=== PATIENT | female | born 1935 | race Two or more races ===

== ENCOUNTER 2019-01-26 21:13 | Emergency (ER) | payer MEDICARE, MEDICAID ==
[2019-01-26] MEDS ORDERED: ACETAMINOPHEN 325 MG TABLET PO ONE (23:35)
--- NOTE | 2019-01-26 23:37 | ER Document Report ---
ED Medical Screen (RME) - General Chief Complaint: Nose Bleed Stated Complaint: NOSE BLEED Time Seen by Provider: 01/26/19 23:17 Primary Care Provider: JAVIER MARTINEZ MD [Primary Care Provider] - Follow up as needed - [facility] Notes: 01/26/19 23:35 Patient is an 83-year-old female with history of hypertension, not on any blood thinning medications, who presents complaining of having a heavy nosebleed for a couple hours this evening that stopped about an hour ago. Patient states that now she has a "wicked headache." This is not the worst headache of her life and did not start as a thunderclap. Patient is requesting Tylenol. No fever, chest pain, shortness of breath. I have treated and performed a rapid initial assessment of this patient. A comprehensive ED assessment and evaluation of the patient, analysis of test results and completion of medical decision making process will be conducted by additional ED providers. PHYSICAL EXAMINATION: GENERAL: Well-appearing, well-nourished and in no acute distress. A&Ox4. Answers questions appropriately. Neuro: Cranial nerves grossly intact. NIH 0. GCS 15. Nose: There is scant semi-wet blood noted to the distal Rt nare. There is minimal amount of scant blood in the posterior oropharynx. No other active bleeding. - Related Data Allergies/Adverse Reactions: No Known Allergies Allergy (Verified 04/13/13 08:06) Home Medications: Losartan Past Medical History - Social History Frequency of alcohol use: None Drug Abuse: None - Past Medical History Cardiac Medical History: Reports: Hx Hypertension Past Surgical History: Reports: Hx Section - Immunizations Hx Diphtheria, Pertussis, Tetanus Vaccination: No - unk Physical Exam - Vital signs Vitals: Temp Pulse Resp BP Pulse Ox 97.6 F 66 16 148/61 H 100 01/26/19 21:41 01/26/19 21:41 01/26/19 21:41 01/26/19 21:41 01/26/19 21:41 Course - Vital Signs Vital signs: Temp Pulse Resp BP Pulse Ox 97.6 F 66 16 148/61 H 100 01/26/19 21:41 01/26/19 21:41 01/26/19 21:41 01/26/19 21:41 01/26/19 21:41 Doctor's Discharge - Discharge Referrals: JAVIER MARTINEZ MD [Primary Care Provider] - Follow up as needed
[2019-01-27 00:01] LABS: ABSOLUTE EOSINOPHILS # (AUTO) 0.1 10^3/uL (0.0-0.6); ABSOLUTE LYMPHOCYTES (AUTO) 1.5 10^3/uL (0.5-4.7); ABSOLUTE MONOCYTES (AUTO) 0.4 10^3/uL (0.1-1.4); ABSOLUTE NEUT (AUTO) 4.6 10^3/uL (1.7-8.2); BASOPHILS % (AUTO) 0.4 % (0-2); HEMOGLOBIN 10.9 g/dL (12.0-15.5); LYMPHOCYTES % (AUTO) 22.4 % (13-45); MEAN CORPUSCULAR HEMOGLOBIN 26.6 pg (27.0-33.4); MEAN CORPUSCULAR HGB CONC 32.9 g/dL (32.0-36.0); MEAN CORPUSCULAR VOLUME 81 fl (80-97); PLATELET COUNT 232 10^3/uL (150-450); RED BLOOD COUNT 4.09 10^6/uL (3.72-5.28); RED CELL DISTRIBUTION WIDTH 13.6 % (11.5-14.0); SEGMENTED NEUTROPHILS % (AUTO) 70.2 % (42-78); TOTAL CELLS COUNTED % (AUTO) 100 %; WHITE BLOOD COUNT 6.5 10^3/uL (4.0-10.5)
--- NOTE | 2019-01-27 00:49 | ER Document Report ---
ED General - General Chief Complaint: Nose Bleed Stated Complaint: NOSE BLEED Time Seen by Provider: 01/26/19 23:17 Primary Care Provider: JAVIER MARTINEZ MD [Primary Care Provider] - Follow up as needed - HPI Notes: Patient is a very pleasant 83-year-old female who presents the emergency department for evaluation of a nosebleed. She states she was at home when she had sudden onset of bilateral nostril bleeding. She tried for about an hour to get it to stop when she called her daughter. After another hour they could not get it to stop so she was brought here to the emergency department for further evaluation. She had a total of approximately 4 hours of nosebleeding. She denies any trauma to the area. She is not on any blood thinners. She denies any chest pain or dizziness associated with it. Patient also states she has a mild headache. It is not the worst headache of her life. It is in bilateral temples and frontal area. Nothing seems to make it better or worse. - Related Data Allergies/Adverse Reactions: No Known Allergies Allergy (Verified 04/13/13 08:06) Home Medications: Losartan unknown dose daily, Claritin 10 mg daily Past Medical History - General Information source: Patient - Social History Smoking Status: Never Smoker Frequency of alcohol use: None Drug Abuse: None Family History: Reviewed & Not Pertinent Patient has suicidal ideation: No Patient has homicidal ideation: No - Past Medical History Cardiac Medical History: Reports: Hx Hypertension Past Surgical History: Reports: Hx Section - Immunizations Hx Diphtheria, Pertussis, Tetanus Vaccination: No - unk Review of Systems - Review of Systems Constitutional: No symptoms reported EENT: See HPI Cardiovascular: No symptoms reported Respiratory: No symptoms reported Gastrointestinal: No symptoms reported Genitourinary: No symptoms reported Musculoskeletal: No symptoms reported Skin: No symptoms reported Neurological/Psychological: No symptoms reported Physical Exam - Vital signs Vitals: Temp Pulse Resp BP Pulse Ox 97.6 F 66 16 148/61 H 100 01/26/19 21:41 01/26/19 21:41 01/26/19 21:41 01/26/19 21:41 01/26/19 21:41 - Notes Notes: Vital signs reviewed, please refer to chart. Head is normocephalic, atraumatic. Pupils equal round, reactive to light. No conjunctival pallor. There is a scant amount of blood in anterior nares bilaterally, but no active bleeding. No clear bleeding source identified. Neck is supple without meningismus. Heart is regular rate and rhythm. Lungs are clear to auscultation bilaterally. Abdomen is soft, nontender, normoactive bowel sounds throughout. Extremities without cyanosis, clubbing. Posterior calves are nontender. Peripheral pulses are equ al. Skin is warm and dry. Patient is awake, alert, oriented x3. Cranial nerves II - XII are grossly intact without focal neurological deficits. Strength is plus 5 out of 5 bilateral upper and lower extremities. Sensation is intact. Reflexes symmetrical. Intact [id number]-[id number], rapid alternating movements, ayih-[id number]-xtix. Course - Re-evaluation Re-evalutation: 01/27/19 00:47 Patient presents emergency department for evaluation. She was given Tylenol for her headache. By the time she came back into the emergency department her nosebleed had stopped. She was warned to avoid any manipulation of her nose, not to blow her nose. She can use saline nasal drops after 24 hours. Her hemoglobin was 10.9. This is certainly not a remarkable hemoglobin for an 83-year-old female. I do not have any old hemoglobins for comparison. She is encouraged to follow-up with her primary care doctor Tuesday, return to the ED with worsening or new concerning symptoms. - Vital Signs Vital signs: Temp Pulse Resp BP Pulse Ox 97.6 F 66 16 148/61 H 100 01/26/19 21:41 01/26/19 21:41 01/26/19 21:41 01/26/19 21:41 01/26/19 21:41 - Laboratory Result Diagrams: 01/26/19 23:50 Laboratory results interpreted by me: 01/26/19 23:50 Hgb 10.9 L Hct 33.0 L MCH 26.6 L Discharge - Discharge Clinical Impression: Nosebleed, Headache Condition: Stable Disposition: HOME, SELF-CARE Instructions: Nosebleed Instructions (OM) Additional Instructions: On evaluation today, your hemoglobin was 10.9. Rest. Do not blow your nose for at least 24 hours. After 24 hours you can add saline nasal drops to keep the nasal mucosa moisturized. Follow-up with your primary care provider on Tuesday. If you develop nosebleed again that will not stop after 1 hour of constant pressure, or any other new or concerning symptoms, please return immediately to the emergency department for evaluation. Referrals: JAVIER MARTINEZ MD [Primary Care Provider] - Follow up as needed
[2019-01-27 01:03] VITALS: BP 136/54
== END 2019-01-27 01:12 | disposition home or self-care (01) ==
LOC: ER 21:13
DX: R04.0 Epistaxis (principal); R51 Headache; I10 Essential (primary) hypertension; Z79.899 Other long term (current) drug therapy
CPT/HCPCS: 36415; 85025; A9270; 99283

== ENCOUNTER 2019-08-24 14:37 | Emergency (ER) | payer MEDICARE, MEDICAID ==
[2019-08-24] MEDS ORDERED: NORMAL SALINE 1000 ML 1,000 ML IV PRN (16:29)
[2019-08-24] MEDS ORDERED: ONDANSETRON HCL INJ/PF 4 MG/2 ML SDV IV ONE (16:30)
--- NOTE | 2019-08-24 16:41 | ER Document Report ---
ED GI/ - General Chief Complaint: Headache Stated Complaint: ABDOMINAL PAIN,HEADACHE Time Seen by Provider: 08/24/19 16:24 Primary Care Provider: JAVIER MARTINEZ MD [Primary Care Provider] - Follow up as needed Information source: Patient TRAVEL OUTSIDE OF THE [place] IN LAST 30 DAYS: Yes - HPI Patient complains to provider of: Other - This is an 84-year-old female presented to the emergency room today stating that her neighbor upstairs was utilizing some type of chemicals yesterday that had fumes coming into her house she has metallic taste in her mouth and scant nausea she is been able to eat and drink today without any discomfort no problems holding it down she did have a bowel movement she denies chest pain denies shortness of breath. - Related Data Allergies/Adverse Reactions: No Known Allergies Allergy (Verified 04/13/13 08:06) Past Medical History - General Information source: Patient - Social History Smoking Status: Never Smoker Chew tobacco use (# tins/day): No Smoking Education Provided: No Frequency of alcohol use: None Drug Abuse: None Lives with: Alone Family History: Reviewed & Not Pertinent - Past Medical History Cardiac Medical History: Reports: Hx Hypertension Past Surgical History: Reports: Hx Section - Immunizations Hx Diphtheria, Pertussis, Tetanus Vaccination: No - unk Review of Systems - Review of Systems Constitutional: No symptoms reported EENT: No symptoms reported Cardiovascular: No symptoms reported Respiratory: No symptoms reported Gastrointestinal: No symptoms reported Genitourinary: No symptoms reported Female Genitourinary: No symptoms reported Musculoskeletal: No symptoms reported Skin: No symptoms reported Hematologic/Lymphatic: No symptoms reported Neurological/Psychological: No symptoms reported Physical Exam - Vital signs Vitals: Temp 97.5 F 08/24/19 16:00 Interpretation: Normal - General General appearance: Appears well, Alert - HEENT Head: Normocephalic, Atraumatic Eyes: Normal Pupils: PERRL - Respiratory Respiratory status: No respiratory distress Chest status: Nontender Breath sounds: Normal Chest palpation: Normal - Cardiovascular Rhythm: Regular Heart sounds: Normal auscultation Murmur: No - Abdominal Inspection: Normal Distension: No distension Bowel sounds: Normal Tenderness: Nontender Organomegaly: No organomegaly - Back Back: Normal, Nontender - Extremities General upper extremity: Normal inspection, Nontender, Normal color, Normal ROM, Normal temperature General lower extremity: Normal inspection, Nontender, Normal color, Normal ROM, Normal temperature, Normal weight bearing. No: Sage's sign - Neurological Neuro grossly intact: Yes Cognition: Normal Orientation: AAOx4 [place] Coma Scale Eye Opening: Spontaneous [place] Coma Scale Verbal: Oriented [place] Coma Scale Motor: Obeys Commands [place] Coma Scale Total: 15 Speech: Normal Motor strength normal: LUE, RUE, LLE, RLE Sensory: Normal - Psychological Associated symptoms: Normal affect, Normal mood - Skin Skin Temperature: Warm Skin Moisture: Dry Skin Color: Normal Course - Re-evaluation Re-evalutation: 08/24/19 20:42 No chest pain no shortness of breath no exertional chest pain no exertional shortness of breath no diaphoresis no nausea no vomiting patient feeling much better here in the department. - Vital Signs Vital signs: Temp Pulse Resp BP Pulse Ox 97.5 F 08/24/19 16:00 - Laboratory Result Diagrams: 08/24/19 19:25 08/24/19 19:25 Laboratory results interpreted by me: 08/24/19 08/24/19 19:25 19:25 Hgb 10.7 L Hct 33.4 L MCH 26.3 L AST 38 H Lipase 20.2 L Labs- All tests 24 hr 08/24/19 08/24/19 08/24/19 19:00 19:25 19:25 WBC 9.0 RBC 4.06 Hgb 10.7 L Hct 33.4 L MCV 82 MCH 26.3 L MCHC 32.0 RDW 13.9 Plt Count 222 Lymph % (Auto) Not Reportable [place] % (Auto) Not Reportable Eos % (Auto) Not Reportable Baso % (Auto) Not Reportable Absolute Neuts (auto) Not Reportable Absolute Lymphs (auto) Not Reportable Absolute Monos (auto) Not Reportable Absolute Eos (auto) Not Reportable Absolute Basos (auto) Not Reportable Total Counted 100 Seg Neutrophils % Not Reportable Seg Neuts % (Manual) 52 Lymphocytes % (Manual) 41 Monocytes % (Manual) 7 Eosinophils % (Manual) 0 Basophils % (Manual) 0 Abs Neuts (Manual) 4.7 Abs Lymphs (Manual) 3.7 Abs Monocytes (Manual) 0.6 Absolute Eos (Manual) 0.0 Abs Basophils (Manual) 0.0 Clumped Platelets PRESENT Platelet Comment ADEQUATE RBC Morph Comment NORMO-CYTIC/CHROMIC Sodium 138.6 Potassium 3.9 Chloride 104 Carbon Dioxide 27 Anion Gap 8 BUN 14 Creatinine 0.69 Est GFR ( Amer) > 60 Est GFR (MDRD) Non-Af > 60 Glucose 94 Calcium 9.7 Total Bilirubin 0.5 Direct Bilirubin 0.0 Neonat Total Bilirubin Not Reportable Neonat Direct Bilirubin Not Reportable Neonat Indirect Bili Not Reportable AST 38 H ALT 27 Alkaline Phosphatase 90 Total Protein 8.1 Albumin 4.5 Lipase 20.2 L Urine Color STRAW Urine Appearance CLEAR Urine pH 7.0 Ur Specific [place] 1.005 Urine Protein NEGATIVE Urine Glucose (UA) NEGATIVE Urine Ketones NEGATIVE Urine Blood NEGATIVE Urine Nitrite NEGATIVE Urine Bilirubin NEGATIVE Urine Urobilinogen NEGATIVE Ur Leukocyte Esterase NEGATIVE Urine WBC (Auto) 1 Urine RBC (Auto) 0 Squamous Epi Cells Auto 1 Urine Mucus (Auto) RARE Urine Ascorbic Acid NEGATIVE - Diagnostic Test Radiology results interpreted by me: 08/24/19 20:42 Acute Abdomen Series 08/24/19 16:29 IMPRESSION: No acute findings in the abdomen. Cardiomegaly without pulmonary edema. Osseous findings as described. Discharge - Discharge Clinical Impression: Viral syndrome Disposition: HOME, SELF-CARE Instructions: [facility]ae ([facility]) Additional Instructions: Increase fluid intake. Rest. Follow-up with PMD in 2 to 3 days. Return to the emergency room for any change or worsening condition. Referrals: JAVIER MARTINEZ MD [Primary Care Provider] - Follow up as needed
--- NOTE | 2019-08-24 17:54 | RADIOLOGY REPORT (SQ) ---
EXAM DESCRIPTION: ACUTE ABDOMEN SERIES IMAGES COMPLETED DATE/TIME: 08/24/2019 5:42 pm REASON FOR STUDY: cough cramping COMPARISON: None. NUMBER OF VIEWS: Three views. TECHNIQUE: Frontal chest, supine abdomen and upright/decubitus abdomen radiographic images acquired. LIMITATIONS: None. FINDINGS: CHEST: Cardiomegaly without pulmonary edema. FREE AIR: None. No abnormal gas collections. BOWEL GAS PATTERN: Nonobstructive pattern. No dilated loops or air fluid levels. CALCIFICATIONS: No suspicious calcifications. HARDWARE: None in the abdomen. SOFT TISSUES: No gross mass or suggestion of organomegaly. BONES: Lumbar scoliosis and degenerative disc disease and spondylosis. OTHER: No other significant finding. IMPRESSION: No acute findings in the abdomen. Cardiomegaly without pulmonary edema. Osseous findin gs as described. TECHNICAL DOCUMENTATION: JOB ID: [id number] 2010 [employer]- All Rights Reserved Reading location - IP/workstation name: [email or web address]
[2019-08-24 19:26] LABS: APPEARANCE,URINE CLEAR; BILIRUBIN,URINE NEGATIVE (NEGATIVE); COLOR,URINE STRAW; GLUCOSE, URINE NEGATIVE (NEGATIVE); KETONES,URINE NEGATIVE (NEGATIVE); LEUKOCYTE ESTERASE,URINE NEGATIVE (NEGATIVE); NITRITE,URINE NEGATIVE (NEGATIVE); PROTEIN,URINE NEGATIVE (NEGATIVE); URINE SPECIFIC GRAVITY 1.005; UROBILINOGEN,URINE NEGATIVE mg/dL (<2.0)
[2019-08-24 19:48] LABS: HEMATOCRIT 33.4 % (36.0-47.0); HEMOGLOBIN 10.7 g/dL (12.0-15.5); MEAN CORPUSCULAR HEMOGLOBIN 26.3 pg (27.0-33.4); MEAN CORPUSCULAR VOLUME 82 fl (80-97); RED BLOOD COUNT 4.06 10^6/uL (3.72-5.28); RED CELL DISTRIBUTION WIDTH 13.9 % (11.5-14.0)
[2019-08-24 19:59] LABS: ALBUMIN 4.5 g/dL (3.5-5.0); ALKALINE PHOSPHATASE 90 U/L (38-126); ANION GAP 8 (5-19); ASPARTATE AMINO TRANSFERASE 38 U/L (14-36); BILIRUBIN,TOTAL 0.5 mg/dL (0.2-1.3); BLOOD UREA NITROGEN 14 mg/dL (7-20); CALCIUM 9.7 mg/dL (8.4-10.2); CARBON DIOXIDE 27 mmol/L (22-30); CHLORIDE 104 mmol/L (98-107); GLUCOSE 94 mg/dL (75-110); POTASSIUM 3.9 mmol/L (3.6-5.0); TOTAL PROTEIN 8.1 g/dL (6.3-8.2)
[2019-08-24 20:19] LABS: PLATELET COUNT 222 10^3/uL (150-450)
[2019-08-24 20:22] LABS: ABSOLUTE LYMPHOCYTES# (MANUAL) 3.7 10^3/uL (0.5-4.7); ABSOLUTE MONOCYTES # (MANUAL) 0.6 10^3/uL (0.1-1.4); BASOPHILS % (MANUAL) 0 % (0-2); EOSINOPHILS % (MANUAL) 0 % (0-6); LYMPHOCYTES % (MANUAL) 41 % (13-45); MONOCYTES % (MANUAL) 7 % (3-13); PLATELET CLUMPS PRESENT; PLATELET COMMENT ADEQUATE; RBC MORPHOLOGY COMMENT NORMO-CYTIC/CHROMIC; SEGMENTED NEUTROPHILS % (MAN) 52 % (42-78); TOTAL CELLS COUNTED 100
[2019-08-24 20:49] VITALS: BP 147/63
== END 2019-08-24 21:09 | disposition home or self-care (01) ==
LOC: ER 14:37
DX: B34.9 Viral infection, unspecified (principal); R43.8 Other disturbances of smell and taste; R11.0 Nausea; Z77.098 Contact with and (suspected) exposure to other hazardous, chiefly nonmedicinal, chemicals; I11.9 Hypertensive heart disease without heart failure
CPT/HCPCS: 99284; 96361; 96374; 36415; 83690; 85025; 80053; 81001; 74022; J2405; J7030

== ENCOUNTER 2019-09-01 08:30 | Emergency (ER) | payer MEDICARE, MEDICAID ==
[2019-09-01] MEDS ORDERED: METOCLOPRAMIDE HCL INJ/PF 10 MG/2 ML SDV IV ONE (10:58)
--- NOTE | 2019-09-01 11:22 | EKG REPORT ---
SEVERITY:- BORDERLINE ECG - SINUS RHYTHM CONSIDER ANTERIOR INFARCT BORDERLINE T ABNORMALITIES, DIFFUSE LEADS : Confirmed by: Oj Griffin MD 01-Sep-2019 11:21:21
[2019-09-01 11:26] LABS: APPEARANCE,URINE CLEAR; BILIRUBIN,URINE NEGATIVE (NEGATIVE); COLOR,URINE COLORLESS; GLUCOSE, URINE NEGATIVE (NEGATIVE); KETONES,URINE NEGATIVE (NEGATIVE); LEUKOCYTE ESTERASE,URINE NEGATIVE (NEGATIVE); NITRITE,URINE NEGATIVE (NEGATIVE); PROTEIN,URINE NEGATIVE (NEGATIVE); URINE SPECIFIC GRAVITY 1.003; UROBILINOGEN,URINE NEGATIVE mg/dL (<2.0)
[2019-09-01 11:29] LABS: ABSOLUTE BASOPHILS # (AUTO) 0.1 10^3/uL (0.0-0.2); ABSOLUTE EOSINOPHILS # (AUTO) 0.1 10^3/uL (0.0-0.6); ABSOLUTE LYMPHOCYTES (AUTO) 1.3 10^3/uL (0.5-4.7); ABSOLUTE MONOCYTES (AUTO) 0.4 10^3/uL (0.1-1.4); ABSOLUTE NEUT (AUTO) 3.4 10^3/uL (1.7-8.2); BASOPHILS % (AUTO) 1.2 % (0-2); EOSINOPHILS % (AUTO) 1.6 % (0-6); HEMATOCRIT 34.2 % (36.0-47.0); HEMOGLOBIN 11.2 g/dL (12.0-15.5); LYMPHOCYTES % (AUTO) 25.1 % (13-45); MEAN CORPUSCULAR HEMOGLOBIN 26.6 pg (27.0-33.4); MEAN CORPUSCULAR HGB CONC 32.7 g/dL (32.0-36.0); MEAN CORPUSCULAR VOLUME 81 fl (80-97); MONOCYTES % (AUTO) 7.4 % (3-13); PLATELET COUNT 272 10^3/uL (150-450); RED BLOOD COUNT 4.21 10^6/uL (3.72-5.28); SEGMENTED NEUTROPHILS % (AUTO) 64.7 % (42-78); TOTAL CELLS COUNTED % (AUTO) 100 %; WHITE BLOOD COUNT 5.3 10^3/uL (4.0-10.5)
[2019-09-01 11:45] LABS: ALBUMIN 4.7 g/dL (3.5-5.0); ALKALINE PHOSPHATASE 98 U/L (38-126); ANION GAP 6 (5-19); ASPARTATE AMINO TRANSFERASE 42 U/L (14-36); BILIRUBIN,TOTAL 0.3 mg/dL (0.2-1.3); BLOOD UREA NITROGEN 15 mg/dL (7-20); CARBON DIOXIDE 32 mmol/L (22-30); CHLORIDE 102 mmol/L (98-107); CREATINE KINASE 314 U/L (30-135); GLUCOSE 99 mg/dL (75-110); POTASSIUM 4.1 mmol/L (3.6-5.0); TOTAL PROTEIN 8.6 g/dL (6.3-8.2)
[2019-09-01 11:57] LABS: CREATINE KINASE MB 5.04 ng/mL (<4.55)
[2019-09-01 11:58] LABS: TROPONIN I < 0.012 ng/mL
--- NOTE | 2019-09-01 12:17 | RADIOLOGY REPORT (SQ) ---
EXAM DESCRIPTION: CHEST SINGLE VIEW IMAGES COMPLETED DATE/TIME: 09/01/2019 12:09 pm REASON FOR STUDY: dizziness/leg edema COMPARISON: None. EXAM PARAMETERS: NUMBER OF VIEWS: One view. TECHNIQUE: Single frontal radiographic view of the chest acquired. RADIATION DOSE: NA LIMITATIONS: None. FINDINGS: LUNGS AND PLEURA: No opacities, masses or pneumothorax. No pleural effusion. MEDIASTINUM AND HILAR STRUCTURES: No masses. Contour normal. HEART AND VASCULAR STRUCTURES: Heart normal in size. Normal vasculature. BONES: No acute findings. HARDWARE: None in the chest. OTHER: No other significant finding. IMPRESSION: NO ACUTE RADIOGRAPHIC FINDING IN THE CHEST. TECHNICAL DOCUMENTATION: JOB ID: [id number] 2010 [employer]- All Rights Reserved Reading location - IP/workstation name: [email or web address]
--- NOTE | 2019-09-01 13:05 | RADIOLOGY REPORT (SQ) ---
EXAM DESCRIPTION: CT HEAD WITHOUT IMAGES COMPLETED DATE/TIME: 09/01/2019 12:53 pm REASON FOR STUDY: dizziness COMPARISON: None. TECHNIQUE: Axial images acquired through the brain without intravenous contrast. Images reviewed wi th bone, brain and subdural windows. Images stored on PACS. All CT scanners at this facility use dose modulation, iterative reconstruction, and/or weight based d osing when appropriate to reduce radiation dose to as low as reasonably achievable (ALARA). [facility]: Dose Right [facility]: CareDose [facility]: Dose Right [facility]: Teradose 4D [facility]: [facility] RADIATION DOSE: CT Rad equipment meets quality standard of care and radiation dose reduction techniq ues were employed. CTDIvol: 53.2 mGy. DLP: 858 mGy-cm. mGy. LIMITATIONS: None. FINDINGS: VENTRICLES: Normal size and contour. CEREBRUM: No masses. No hemorrhage. No midline shift. No evidence for acute infarction. Normal gra y/white matter differentiation. No areas of low density in the white matter. CEREBELLUM: No masses. No hemorrhage. No alteration of density. No evidence for acute infarction. EXTRAAXIAL SPACES: No fluid collections. No masses. ORBITS AND GLOBE: No intra- or extraconal masses. Normal contour of globe without masses. CALVARIUM: No fracture. PARANASAL SINUSES: No fluid or mucosal thickening. SOFT TISSUES: No mass or hematoma. OTHER: No other significant finding. IMPRESSION: NORMAL BRAIN CT WITHOUT CONTRAST. EVIDENCE OF ACUTE STROKE: NO. COMMENT: Quality ID # [id number]: Final reports with documentation of one or more dose reduction techniques (e.g., Automated exposure control, adjustment of the mA and/or kV according to patient size, use of iterative reconstruction technique) TECHNICAL DOCUMENTATION: JOB ID: [id number] [employer]- All Rights Reserved Reading location - IP/workstation name: [email or web address]
[2019-09-01] MEDS ORDERED: MECLIZINE HCL 25 MG TABLET PO ONE (13:08)
--- NOTE | 2019-09-01 13:59 | RADIOLOGY REPORT (SQ) ---
EXAM DESCRIPTION: VENOUS BILATERAL LOWER IMAGES COMPLETED DATE/TIME: 09/01/2019 1:42 pm REASON FOR STUDY: bilateral leg edema COMPARISON: None. TECHNIQUE: Dynamic and static tamez scale and color images acquired of both lower extremity venous sy stems. Selected spectral images acquired with additional compression and augmentation maneuvers. Imag es stored on PACS. LIMITATIONS: None. FINDINGS: RIGHT LEG COMMON FEMORAL AND FEMORAL: Normal phasicity, compression and augmentation. No visualized echogenic m aterial on tamez scale. No defects on color images. POPLITEAL: Normal compression and augmentation. No visualized echogenic material on tamez scale. No de fects on color images. CALF VESSELS: Normal compression and augmentation. No visualized echogenic material on tamez scale. No defects on color image. GSV AND SSV: Normal compression. No visualized echogenic material on tamez scale. No defects on color images. ANY DEEP VENOUS INSUFFICIENCY: Not evaluated. ANY EVIDENCE OF POPLITEAL CYST: No. OTHER: No other significant finding. LEFT LEG COMMON FEMORAL AND FEMORAL: Normal phasicity, compression and augmentation. No visualized echogenic m aterial on tamez scale. No defects on color images. POPLITEAL: Normal compression and augmentation. No visualized echogenic material on tamez scale. No de fects on color images. CALF VESSELS: The peroneal vein was not discretely identified. Normal compression and augmentation. No visualized echogenic material on tamez scale. No defects on color images. GSV AND SSV: Normal compression. No visualized echogenic material on tamez scale. No defects on color images. ANY DEEP VENOUS INSUFFICIENCY: Not evaluated. ANY EVIDENCE POPLITEAL CYST: No. OTHER: No other significant finding. IMPRESSION: NO EVIDENCE DVT OR SVT IN EITHER LEG. TECHNICAL DOCUMENTATION: JOB ID: [id number] 2010 [employer]- All Rights Reserved Reading location - IP/workstation name: [email or web address]
--- NOTE | 2019-09-01 14:26 | ER Document Report ---
Entered by DEVIN SANTIAGO SCRIBE 09/01/19 1009 Acting as scribe for:ARYA VEGA MD ED General - General Chief Complaint: Dizziness Stated Complaint: DIZZINESS Time Seen by Provider: 09/01/19 09:40 Primary Care Provider: JAVIER MARTINEZ MD [Primary Care Provider] - Follow up as needed Information source: Patient Notes: This 84 year old female patient presents to the emergency department today with complaints of dizziness. Patient states she was fine last night, but felt dizzy when she got up this morning. Denies a headache, shortness of breath, or urine problems. Patient states she recently visited the ED and was prescribed reglan for dizziness. Patient states she has the prescription, believes it would work, but has not taken it. TRAVEL OUTSIDE OF THE [place] IN LAST 30 DAYS: Yes - Related Data Allergies/Adverse Reactions: No Known Allergies Allergy (Verified 04/13/13 08:06) Past Medical History - General Information source: Patient - Social History Smoking Status: Never Smoker Cigarette use (# per day): No Chew tobacco use (# tins/day): No Family History: Reviewed & Not Pertinent - Past Medical History Cardiac Medical History: Reports: Hx Hypertension Musculoskeletal Medical History: Reports Hx Arthritis Past Surgical History: Reports: Hx Section - Immunizations Hx Diphtheria, Pertussis, Tetanus Vaccination: No - unk Review of Systems - Review of Systems Constitutional: No symptoms reported EENT: No symptoms reported Cardiovascular: See HPI, Dizziness Respiratory: See HPI. denies: Short of breath Gastrointestinal: No symptoms reported Genitourinary: See HPI Female Genitourinary: No symptoms reported Musculoskeletal: No symptoms reported Skin: No symptoms reported Hematologic/Lymphatic: No symptoms reported Neurological/Psychological: See HPI. denies: Headaches -: Yes All other systems reviewed and negative Physical Exam - Vital signs Vitals: Temp Pulse Resp BP Pulse Ox 97.5 F 77 16 138/55 H 98 09/01/19 08:34 09/01/19 08:34 09/01/19 08:34 09/01/19 08:34 09/01/19 08:34 - General General appearance: Appears well, Alert - HEENT Head: Normocephalic, Atraumatic Eyes: Normal Pupils: PERRL Ears: Normal External canal: Cerumen impaction - R Tympanic membrane: Serous effusion - L Neck: Normal. No: Carotid bruit - Respiratory Respiratory status: No respiratory distress Chest status: Nontender Breath sounds: Normal Chest palpation: Normal - Cardiovascular Rhythm: Regular Heart sounds: Normal auscultation Murmur: No - Abdominal Inspection: Normal Distension: No distension Bowel sounds: Normal Tenderness: Nontender - Extremities General upper extremity: Normal inspection. No: Edema Notes: Bilateral non-pitting edema of the lower extremities. Nontender with palpation. - Neurological Neuro grossly intact: Yes Cognition: Normal Orientation: AAOx4 [place] Coma Scale Eye Opening: Spontaneous [place] Coma Scale Verbal: Oriented [place] Coma Scale Motor: Obeys Commands [place] Coma Scale Total: 15 Speech: Normal Cranial nerves: Normal Cerebellar coordination: Normal Motor strength normal: LUE, RUE, LLE, RLE Sensory: Normal - Psychological Associated symptoms: Normal affect, Normal mood - Skin Skin Temperature: Warm Skin Moisture: Dry Skin Color: Normal Course - Re-evaluation Re-evalutation: 09/01/19 14:21 Patient reports she is feeling better not dizzy any longer. - Vital Signs Vital signs: Temp Pulse Resp BP Pulse Ox 97.5 F 65 16 136/59 H 100 09/01/19 08:34 09/01/19 12:00 09/01/19 13:01 09/01/19 13:01 09/01/19 13:01 09/01/19 14:21 Vital signs are stable no acute process - Laboratory Result Diagrams: 09/01/19 11:19 09/01/19 11:19 Laboratory results interpreted by me: 09/01/19 09/01/19 09/01/19 11:19 11:19 11:19 Hgb 11.2 L Hct 34.2 L MCH 26.6 L Carbon Dioxide 32 H AST 42 H ALT 37 H Creatine Kinase 314 H CK-MB (CK-2) 5.04 H Total Protein 8.6 H Labs within normal limits including troponin level consistent at 0.012. Patient does have mild elevation and LFTs. Hemoglobin hematocrit 11 and 34 - Diagnostic Test Radiology reviewed: Image reviewed, Reports reviewed Radiology results interpreted by me: 09/01/19 14:22 CT scan of head shows no evidence for stroke no other acute process Chest x-ray no acute process. 09/01/19 14:23 Venous Doppler studies of bilateral lower extremities showed no evidence deep ve in thrombosis or superficial vein thrombosis. - EKG Interpretation by Me Additional EKG results interpreted by me: 09/01/19 14:23 Twelve-lead EKG shows normal sinus rhythm rate of 66 consider an old anterior infarct borderline T wave abnormalities diffuse. Discharge - Discharge Clinical Impression: Dizziness, Labyrinthitis, left ear Disposition: HOME, SELF-CARE Instructions: Dizziness ([facility]), Labyrinthitis ([facility]), Meclizine ([facility]) Additional Instructions: Labyrinthitis Labyrinthitis is a temporary disease of the inner ear. It's sometimes called vestibulitis. It often starts a few days after a cold or virus infection. Symptoms include vertigo (the spinning type of dizziness) or a sense of unsteadiness and nausea. The symptoms usually go away in a couple of days without any treatment. You should rest and keep your head still. The dizziness is worse if you move your head. Closing the eyes usually helps. Don't drive, work with dangerous machinery, or get up on ladders or scaffolds until a few days after the dizziness resolves. Medicine such as meclizine (Antivert, Bonine) can reduce the dizziness and nausea. Tranquilizers (such as diazepam) can suppress your sense of balance, reducing the unpleasantness of the vertigo. Call or return if you develop ear pain, loss of hearing, fever, severe vomiting, or any other new symptom. Continue your same medications that you are currently taking. Do follow-up with your primary care physician. Prescriptions: Meclizine HCl [Antivert 25 mg Tablet] 25 mg PO TID PRN #21 tablet PRN Reason: Referrals: JAVIER MARTINEZ MD [Primary Care Provider] - Follow up as needed I personally performed the services described in the documentation, reviewed and edited the documentation which was dictated to the scribe in my presence, and it accurately records my words and actions.
[2019-09-01 14:57] VITALS: BP 147/59
== END 2019-09-01 15:29 | disposition home or self-care (01) ==
LOC: ER 08:30
DX: H83.02 Labyrinthitis, left ear (principal); R42 Dizziness and giddiness; I10 Essential (primary) hypertension
CPT/HCPCS: 93005; 99284; 96374; 36415; 82553; 82550; 85025; 80053; 81001; 84484; 93970; 71045; 70450; 93010; A9270; J2765

== ENCOUNTER 2019-10-26 23:16 | Observation (INO) | payer MEDICARE, MEDICAID ==
--- NOTE | 2019-10-27 03:39 | ER Document Report ---
ED General - General Mode of Arrival: Ambulatory Information source: Patient TRAVEL OUTSIDE OF THE [place] IN LAST 30 DAYS: Yes <ENRIQUETA VICTOR - Last Filed: 10/27/19 08:46> <PHILIPP TRINIDAD - Last Filed: 10/27/19 17:12> - General Chief Complaint: Dizziness Stated Complaint: DIZZY AND LEG SWELLING Time Seen by Provider: 10/27/19 03:25 Notes: 84-year-old female patient presents the emergency department via EMS with complaints of dizziness. Patient reports she was sitting in the library and fell just prior to arrival. She states this occurred after she felt dizzy. She denies striking her head, denies any loss of consciousness. She states that she was not able to get back up on her own due to pain and swelling to her lower extremities. She states this has been going on for several days. She denies any history of any DVT or PE. She denies any other illness to include cough, congestion, fever, chills, nausea, vomiting or diarrhea. (ENRIQUETA VICTOR) - Related Data Allergies/Adverse Reactions: chocolate flavor Allergy (Verified 10/26/19 23:57) nut - unspecified Allergy (Verified 10/26/19 23:57) peach Allergy (Verified 10/26/19 23:57) Past Medical History - General Information source: Patient - Social History Smoking Status: Never Smoker Frequency of alcohol use: None Drug Abuse: None Family History: Reviewed & Not Pertinent Patient has homicidal ideation: No - Past Medical History Cardiac Medical History: Reports: Hx Hypertension Musculoskeletal Medical History: Reports Hx Arthritis Past Surgical History: Reports: Hx Section - Immunizations Hx Diphtheria, Pertussis, Tetanus Vaccination: No - unk <ENRIQUETA VICTOR - Last Filed: 10/27/19 08:46> Review of Systems - Review of Systems Constitutional: Other - Dizziness EENT: No symptoms reported Cardiovascular: No symptoms reported Respiratory: No symptoms reported Gastrointestinal: No symptoms reported Genitourinary: No symptoms reported Female Genitourinary: No symptoms reported Musculoskeletal: No symptoms reported Skin: No symptoms reported Hematologic/Lymphatic: No symptoms reported Neurological/Psychological: No symptoms reported <ENRIQUETA VICTOR - Last Filed: 10/27/19 08:46> Physical Exam <ENRIQUETA VICTOR - Last Filed: 10/27/19 08:46> - Vital signs Vitals: Temp Pulse Resp BP Pulse Ox 97.8 F 81 20 151/64 H 99 10/26/19 23:31 10/26/19 23:31 10/26/19 23:31 10/26/19 23:31 10/26/19 23:31 - Notes Notes: PHYSICAL EXAMINATION: GENERAL: Well-appearing, well-nourished and in no acute distress. HEAD: Atraumatic, normocephalic. EYES: Pupils equal round and reactive to light, extraocular movements intact, conjunctiva are normal. ENT: Nares patent, oropharynx clear without exudates. Moist mucous membranes. NECK: Normal range of motion, supple without lymphadenopathy LUNGS: Breath sounds clear to auscultation bilaterally and equal. No wheezes rales or rhonchi. HEART: Regular rate and rhythm without murmurs ABDOMEN: Soft, nontender, nondistended abdomen. No guarding, no rebound. No masses appreciated. Female : deferred Musculoskeletal: 3+ pitting edema to bilateral lower extremities, edema increas ed on the left lower extremity. NEUROLOGICAL: Cranial nerves grossly intact. Normal speech. Normal sensory, motor exams PSYCH: Normal mood, normal affect. SKIN: See above. (ENRIQUETA VICTOR) Course - Laboratory Result Diagrams: 10/27/19 04:33 10/27/19 04:33 <ENRIQUETA VICTOR - Last Filed: 10/27/19 08:46> - Laboratory Result Diagrams: 10/27/19 04:33 10/27/19 04:33 - Diagnostic Test Radiology reviewed: Reports reviewed <PHILIPP TRINIDAD - Last Filed: 10/27/19 17:12> - Re-evaluation Re-evalutation: Laboratory 10/27/19 10/27/19 10/27/19 02:29 04:33 04:33 WBC 6.0 RBC 3.75 Hgb 9.6 L Hct 30.2 L MCV 80 MCH 25.6 L MCHC 31.8 L RDW 14.2 H Plt Count 324 Lymph % (Auto) 25.8 [place] % (Auto) 8.6 Eos % (Auto) 2.5 Baso % (Auto) 0.8 Absolute Neuts (auto) 3.7 Absolute Lymphs (auto) 1.5 Absolute Monos (auto) 0.5 Absolute Eos (auto) 0.1 Absolute Basos (auto) 0.0 Seg Neutrophils % 62.3 Sodium 136.6 L Potassium 3.8 Chloride 104 Carbon Dioxide 29 Anion Gap 4 L BUN 11 Creatinine 0.54 Est GFR ( Amer) > 60 Est GFR (MDRD) Non-Af > 60 Glucose 105 Calcium 9.2 Total Bilirubin 0.5 Direct Bilirubin 0.0 Neonat Total Bilirubin Not Reportable Neonat Direct Bilirubin Not Reportable Neonat Indirect Bili Not Reportable AST 30 ALT 18 Alkaline Phosphatase 78 Creatine Kinase 250 H CK-MB (CK-2) Troponin I NT-Pro-B Natriuret Pep Total Protein 7.3 Albumin 3.8 Urine Color STRAW Urine Appearance CLEAR Urine pH 7.0 Ur Specific [place] 1.003 Urine Protein NEGATIVE Urine Glucose (UA) NEGATIVE Urine Ketones NEGATIVE Urine Blood NEGATIVE Urine Nitrite NEGATIVE Urine Bilirubin NEGATIVE Urine Urobilinogen NEGATIVE Ur Leukocyte Esterase NEGATIVE Urine WBC (Auto) 0 Urine RBC (Auto) 0 Urine Bacteria (Auto) TRACE Squamous Epi Cells Auto <1 Urine Mucus (Auto) RARE Urine Ascorbic Acid NEGATIVE 10/27/19 04:33 WBC RBC Hgb Hct MCV MCH MCHC RDW Plt Count Lymph % (Auto) [place] % (Auto) Eos % (Auto) Baso % (Auto) Absolute Neuts (auto) Absolute Lymphs (auto) Absolute Monos (auto) Absolute Eos (auto) Absolute Basos (auto) Seg Neutrophils % Sodium Potassium Chloride Carbon Dioxide Anion Gap BUN Creatinine Est GFR ( Amer) Est GFR (MDRD) Non-Af Glucose Calcium Total Bilirubin Direct Bilirubin Neonat Total Bilirubin Neonat Direct Bilirubin Neonat Indirect Bili AST ALT Alkaline Phosphatase Creatine Kinase CK-MB (CK-2) 5.76 H Troponin I < 0.012 NT-Pro-B Natriuret Pep 61 Total Protein Albumin Urine Color Urine Appearance Urine pH Ur Specific [place] Urine Protein Urine Glucose (UA) Urine Ketones Urine Blood Urine Nitrite Urine Bilirubin Urine Urobilinogen Ur Leukocyte Esterase Urine WBC (Auto) Urine RBC (Auto) Urine Bacteria (Auto) Squamous Epi Cells Auto Urine Mucus (Auto) Urine Ascorbic Acid Chest X-Ray 10/27/19 03:38 IMPRESSION: No evidence of active intrathoracic disease. Mild chronic change (ENRIQUETA VICTOR) 10/27/19 10:00 Patient voided a large volume of urine to bed acosta. Patient complains of dizziness only with standing. Patient presently denies any dizziness when she is lying down. Patient denies any headache pain, chest pain or lightheadedness. 10/27/19 11:40 Patient reports that dizziness is resolved at this time although patient is lying supine. Attempted to ambulate patient. Patient only able to sit up with assistance, once sitting, patient reports that dizziness returned with a rotational movement and she could not tolerate her symptoms. Pt unable to stand without assistance. Consulted with Dr Alonso who advises admission for concern about ataxia and concern about possible stroke. Advises admission for stroke e valuation. consulted with dr Mcgraw who advises that discharge planning be consulted for social hold given inability to ambulate 10/27/19 11:59 Dr Alonso evaluated pt and spoke with Dr Mcgraw and had concerns regarding patient's dysmetria and need for admission to rule out stroke at this time. Patient reports dizzy symptoms for several days. 10/27/19 12:[address] Robles who does agree to accept patient to [facility] for admission at this time. (PHILIPP TRINIDAD) - Vital Signs Vital signs: Temp Pulse Resp BP Pulse Ox 97.8 F 66 16 141/52 H 100 10/27/19 14:54 10/27/19 15:25 10/27/19 15:25 10/27/19 15:25 10/27/19 15:25 - Laboratory Laboratory results interpreted by me: 10/27/19 10/27/19 10/27/19 04:33 04:33 04:33 Hgb 9.6 L Hct 30.2 L MCH 25.6 L MCHC 31.8 L RDW 14.2 H Sodium 136.6 L Anion Gap 4 L Creatine Kinase 250 H CK-MB (CK-2) 5.76 H Discharge <ENRIQUETA VICTOR - Last Filed: 10/27/19 08:46> - Discharge Admitting Provider: Margaret (Hospitalist) Unit Admitted: [facility] <PHILIPP TRINIDAD - Last Filed: 10/27/19 17:12> - Discharge Clinical Impression: Ataxia, Dizziness, Dysmetria Condition: Fair Disposition: ADMITTED INPATIENT
[2019-10-27 04:11] LABS: APPEARANCE,URINE CLEAR; BILIRUBIN,URINE NEGATIVE (NEGATIVE); COLOR,URINE STRAW; GLUCOSE, URINE NEGATIVE (NEGATIVE); KETONES,URINE NEGATIVE (NEGATIVE); LEUKOCYTE ESTERASE,URINE NEGATIVE (NEGATIVE); NITRITE,URINE NEGATIVE (NEGATIVE); PROTEIN,URINE NEGATIVE (NEGATIVE); URINE SPECIFIC GRAVITY 1.003; UROBILINOGEN,URINE NEGATIVE mg/dL (<2.0)
--- NOTE | 2019-10-27 04:39 | RADIOLOGY REPORT (SQ) ---
CLINICAL INDICATION: dizzy/fall/leg swelling. TECHNIQUE: A single portable AP view was obtained of the chest at 0405 hours. COMPARISON: September 01, 2019. FINDINGS: The cardiomediastinal silhouette is prominent but stable. The lungs are grossly clear. No evidence of effusion or pneumothorax. Mild chronic change. IMPRESSION: No evidence of active intrathoracic disease. Mild chronic change
[2019-10-27 05:04] LABS: ABSOLUTE EOSINOPHILS # (AUTO) 0.1 10^3/uL (0.0-0.6); ABSOLUTE LYMPHOCYTES (AUTO) 1.5 10^3/uL (0.5-4.7); ABSOLUTE MONOCYTES (AUTO) 0.5 10^3/uL (0.1-1.4); ABSOLUTE NEUT (AUTO) 3.7 10^3/uL (1.7-8.2); BASOPHILS % (AUTO) 0.8 % (0-2); EOSINOPHILS % (AUTO) 2.5 % (0-6); HEMATOCRIT 30.2 % (36.0-47.0); HEMOGLOBIN 9.6 g/dL (12.0-15.5); LYMPHOCYTES % (AUTO) 25.8 % (13-45); MEAN CORPUSCULAR HEMOGLOBIN 25.6 pg (27.0-33.4); MEAN CORPUSCULAR HGB CONC 31.8 g/dL (32.0-36.0); MEAN CORPUSCULAR VOLUME 80 fl (80-97); MONOCYTES % (AUTO) 8.6 % (3-13); PLATELET COUNT 324 10^3/uL (150-450); RED BLOOD COUNT 3.75 10^6/uL (3.72-5.28); RED CELL DISTRIBUTION WIDTH 14.2 % (11.5-14.0); SEGMENTED NEUTROPHILS % (AUTO) 62.3 % (42-78); TOTAL CELLS COUNTED % (AUTO) 100 %
[2019-10-27 05:35] LABS: ALBUMIN 3.8 g/dL (3.5-5.0); ALKALINE PHOSPHATASE 78 U/L (38-126); ASPARTATE AMINO TRANSFERASE 30 U/L (14-36); BILIRUBIN,TOTAL 0.5 mg/dL (0.2-1.3); BLOOD UREA NITROGEN 11 mg/dL (7-20); CALCIUM 9.2 mg/dL (8.4-10.2); CARBON DIOXIDE 29 mmol/L (22-30); CHLORIDE 104 mmol/L (98-107); CREATINE KINASE 250 U/L (30-135); GLUCOSE 105 mg/dL (75-110); POTASSIUM 3.8 mmol/L (3.6-5.0); TOTAL PROTEIN 7.3 g/dL (6.3-8.2)
[2019-10-27 05:37] LABS: ANION GAP 4 (5-19)
[2019-10-27 05:47] LABS: CREATINE KINASE MB 5.76 ng/mL (<4.55); NT PRO BNP 61 pg/mL (<450)
[2019-10-27 05:52] LABS: TROPONIN I < 0.012 ng/mL
--- NOTE | 2019-10-27 07:38 | EKG REPORT ---
SEVERITY:- ABNORMAL ECG - SINUS RHYTHM NONSPECIFIC T ABNORMALITIES, ANTERIOR LEADS : Confirmed by: Handy Sandoval MD 27-Oct-2019 07:37:48
[2019-10-27] MEDS ORDERED: MECLIZINE HCL 25 MG TABLET PO ONE (10:07)
[2019-10-27] MEDS ORDERED: ONDANSETRON HCL INJ/PF 4 MG/2 ML SDV IV ONE (10:20)
--- NOTE | 2019-10-27 10:32 | RADIOLOGY REPORT (SQ) ---
EXAM DESCRIPTION: VENOUS BILATERAL LOWER IMAGES COMPLETED DATE/TIME: 10/27/2019 10:21 am REASON FOR STUDY: BLE swelling, L>R COMPARISON: 09/01/2019 TECHNIQUE: Dynamic and static tamez scale and color images acquired of both lower extremity venous sy stems. Selected spectral images acquired with additional compression and augmentation maneuvers. Imag es stored on PACS. LIMITATIONS: None. FINDINGS: RIGHT LEG COMMON FEMORAL AND FEMORAL: Normal phasicity, compression and augmentation. No visualized echogenic m aterial on tamez scale. No defects on color images. POPLITEAL: Normal compression and augmentation. No visualized echogenic material on tamez scale. No de fects on color images. CALF VESSELS: Normal compression and augmentation. No visualized echogenic material on tamez scale. No defects on color image. GSV AND SSV: Normal compression. No visualized echogenic material on tamez scale. No defects on color images. ANY DEEP VENOUS INSUFFICIENCY: Not evaluated. ANY EVIDENCE OF POPLITEAL CYST: No. OTHER: Soft tissue swelling is demonstrated. LEFT LEG COMMON FEMORAL AND FEMORAL: Normal phasicity, compression and augmentation. No visualized echogenic m aterial on tamez scale. No defects on color images. POPLITEAL: Normal compression and augmentation. No visualized echogenic material on tamez scale. No de fects on color images. CALF VESSELS: Normal compression and augmentation. No visualized echogenic material on tamez scale. No defects on color images. GSV AND SSV: Normal compression. No visualized echogenic material on tamez scale. No defects on color images. ANY DEEP VENOUS INSUFFICIENCY: Not evaluated. ANY EVIDENCE POPLITEAL CYST: No. OTHER: Soft tissue swelling is demonstrated IMPRESSION: NO EVIDENCE DVT OR SVT IN EITHER LEG. TECHNICAL DOCUMENTATION: JOB ID: [id number] [employer]- All Rights Reserved Reading location - IP/workstation name: [email or web address]
--- NOTE | 2019-10-27 10:49 | RADIOLOGY REPORT (SQ) ---
EXAM DESCRIPTION: CT HEAD WITHOUT IMAGES COMPLETED DATE/TIME: 10/27/2019 10:34 am REASON FOR STUDY: dizziness COMPARISON: 09/01/2019 TECHNIQUE: Axial images acquired through the brain without intravenous contrast. Images reviewed wi th bone, brain and subdural windows. Additional sagittal and coronal reconstructions were generated. Images stored on PACS. All CT scanners at this facility use dose modulation, iterative reconstruction, and/or weight based d osing when appropriate to reduce radiation dose to as low as reasonably achievable (ALARA). [facility]: Dose Right [facility]: CareDose [facility]: Dose Right [facility]: Teradose 4D [facility]: [employer] RADIATION DOSE: CT Rad equipment meets quality standard of care and radiation dose reduction techniq ues were employed. CTDIvol: 53.2 mGy. DLP: 911 mGy-cm. mGy. LIMITATIONS: None. FINDINGS: VENTRICLES: Normal size and contour. CEREBRUM: No masses. No hemorrhage. No midline shift. No evidence for acute infarction. Normal gra y/white matter differentiation. No areas of low density in the white matter. CEREBELLUM: No masses. No hemorrhage. No alteration of density. No evidence for acute infarction. EXTRAAXIAL SPACES: No fluid collections. No masses. ORBITS AND GLOBE: No intra- or extraconal masses. Normal contour of globe without masses. CALVARIUM: No fracture. PARANASAL SINUSES: No fluid or mucosal thickening. SOFT TISSUES: No mass or hematoma. OTHER: No other significant finding. IMPRESSION: NORMAL BRAIN CT WITHOUT CONTRAST. EVIDENCE OF ACUTE STROKE: NO. COMMENT: Quality ID # [id number]: Final reports with documentation of one or more dose reduction techniques (e.g., Automated exposure control, adjustment of the mA and/or kV according to patient size, use of iterative reconstruction technique) TECHNICAL DOCUMENTATION: JOB ID: [id number] 2010 [employer]- All Rights Reserved Reading location - IP/workstation name: [email or web address]
[2019-10-27] MEDS ORDERED: ACETAMINOPHEN 325 MG TABLET PO PRN (12:33)
[2019-10-27] MEDS ORDERED: ONDANSETRON HCL INJ/PF 4 MG/2 ML SDV IV PRN (12:33)
--- NOTE | 2019-10-27 12:58 | PDOC H&P ---
History of Present Illness Admission Date/PCP: JAVIER MARTINEZ MD Patient complains of: Came with complaints of fall and unsteady gait. History of Present Illness: LEIGHTON BHAGAT is a 84 year old female with history of hypertension, allergies came with complaints of fall associated with unsteady gait since yesterday. According to her she is slid of the chair unable to get up because of Left leg weakness. Work-up in the ER is negative so far. Medical consult was requested to rule out stroke. On examination patient is comfortably in the bed communicating well. Has any chest pains denies any lightheadedness denies a dizzy spells denies any headaches. Past Medical History Cardiac Medical History: Reports: Hypertension Musculoskeltal Medical History: Reports: Arthritis Hematology: Reports: Anemia Denies: Sickle Cell Disease Past Surgical History Past Surgical History: Reports: Section Denies: Amputation Social History Smoking Status: Never Smoker Electronic Cigarette use?: No Hx Recreational Drug Use: No Hx Prescription Drug Abuse: No - Advance Directive Resuscitation Status: Do Not Resuscitate Family History Family History: Reviewed & Not Pertinent Parental Family History Reviewed: Yes - Family history of hypertension Children Family History Reviewed: Yes Sibling(s) Family History Reviewed.: Yes Medication/Allergy Home Medications: Candesartan/Hydrochlorothiazid [Atacand Hct 16-12.5 mg Tablet] 1 each PO DAILY 07/12/12 Oxycodone HCl/Acetaminophen [Percocet 5-325 mg Tablet] 1 tab PO QID #15 tablet 04/13/13 Meclizine HCl [Antivert 25 mg Tablet] 25 mg PO TID PRN #21 tablet 09/01/19 Allergies/Adverse Reactions: chocolate flavor Allergy (Verified 10/26/19 23:57) nut - unspecified Allergy (Verified 10/26/19 23:57) peach Allergy (Verified 10/26/19 23:57) Review of Systems Constitutional: ABSENT: fever(s), headache(s), night sweats Eyes: ABSENT: visual disturbances Ears: ABSENT: hearing changes Nose, Mouth, and Throat: ABSENT: mouth pain, sore throat Cardiovascular: ABSENT: edema, orthropnea, palpitations Respiratory: ABSENT: cough, dyspnea, hemoptysis Gastrointestinal: ABSENT: bloating, heartburn, hematemesis, hematochezia Genitourinary: ABSENT: dysuria Integumentary: ABSENT: lesions, pruritus Neurological: PRESENT: other - Unsteady gait and fall Psychiatric: ABSENT: anxiety, depression, homidical ideation, suicidal ideation Endocrine: ABSENT: cold intolerance, heat intolerance, polydipsia, polyuria Physical Exam Vital Signs: Temp Pulse Resp BP Pulse Ox 98.4 F 81 16 146/63 H 97 10/27/19 09:32 10/26/19 23:31 10/27/19 12:01 10/27/19 12:00 10/27/19 12:01 Intake & Output 10/26/19 10/27/19 10/28/19 06:59 06:59 06:59 Weight 86.183 kg General appearance: PRESENT: no acute distress, obese Head exam: PRESENT: atraumatic Eye exam: PRESENT: conjunctiva pale, PERRLA Mouth exam: PRESENT: moist, tongue midline Teeth exam: PRESENT: poor dentation Neck exam: ABSENT: carotid bruit, JVD, lymphadenopathy, thyromegaly Respiratory exam: PRESENT: decreased breath sounds Cardiovascular exam: PRESENT: RRR. ABSENT: diastolic murmur, rubs, systolic murmur GI/Abdominal exam: PRESENT: normal bowel sounds, soft. ABSENT: distended, guarding, mass, organolmegaly, rebound, tenderness Rectal exam: PRESENT: deferred Extremities exam: PRESENT: full ROM. ABSENT: calf tenderness, clubbing, pedal edema Neurological exam: PRESENT: alert, awake, oriented to person, oriented to place, oriented to time, oriented to situation, CN II-XII grossly intact. ABSENT: motor sensory deficit Psychiatric exam: PRESENT: appropriate affect, normal mood. ABSENT: homicidal ideation, suicidal ideation Results Laboratory Results: 10/27/19 04:33 10/27/19 04:33 10/27/19 10/27/19 10/27/19 02:29 04:33 04:33 WBC 6.0 RBC 3.75 Hgb 9.6 L Hct 30.2 L MCV 80 MCH 25.6 L MCHC 31.8 L RDW 14.2 H Plt Count 324 Seg Neutrophils % 62.3 Sodium 136.6 L Potassium 3.8 Chloride 104 Carbon Dioxide 29 Anion Gap 4 L BUN 11 Creatinine 0.54 Est GFR ( Amer) > 60 Glucose 105 Calcium 9.2 Total Bilirubin 0.5 AST 30 Alkaline Phosphatase 78 Total Protein 7.3 Albumin 3.8 Urine Color STRAW Urine Appearance CLEAR Urine pH 7.0 Ur Specific [place] 1.003 Urine Protein NEGATIVE Urine Glucose (UA) NEGATIVE Urine Ketones NEGATIVE Urine Blood NEGATIVE Urine Nitrite NEGATIVE Ur Leukocyte Esterase NEGATIVE Urine WBC (Auto) 0 Urine RBC (Auto) 0 10/27/19 10/27/19 04:33 04:33 Creatine Kinase 250 H CK-MB (CK-2) 5.76 H Troponin I < 0.012 NT-Pro-B Natriuret Pep 61 Impressions: Chest X-Ray 10/27/19 03:38 IMPRESSION: No evidence of active intrathoracic disease. Mild chronic change Venous Doppler Study 10/27/19 03:38 IMPRESSION: NO EVIDENCE DVT OR SVT IN EITHER LEG. Head CT 10/27/19 10:07 IMPRESSION: NORMAL BRAIN CT WITHOUT CONTRAST. EVIDENCE OF ACUTE STROKE: NO. Assessment and Plan - Diagnosis (1) Ataxia Is this a current diagnosis for this admission?: Yes Plan: 10/27/2019-patient came in with fall and unsteady gait going to be admitted to [facility] as observation patient. Aspiration fall seizure precautions are requested. MRI of the brain without contrast was requested echocardiogram was requested carotid Doppler is requested. Started on aspirin, atorvastatin and DVT prophylaxis. GI prophylaxis initiated. (2) HTN (hypertension) Is this a current diagnosis for this admission?: No Plan: 10/27/2019-patient has history of chronic essential hypertension blood pressure is 146/70 in the ER plan is to continue his home medications at this time. (3) Chronic venous stasis Is this a current diagnosis for this admission?: No Plan: 10/27/2019-patient has chronic venous dialysis DVT studies are negative. On ex amination 2+ lower extremity edema present. - Time Anticipated Discharge Disposition: Home, Self Care Anticipated Discharge Timeframe: within 36 hours
[2019-10-27 13:07] LABS: CHOLESTEROL 163.59 mg/dL (0-200); TRIGLYCERIDES 61 mg/dL (<150)
[2019-10-27 13:18] LABS: DIRECT LDL 73 mg/dL (<100)
--- NOTE | 2019-10-27 13:56 | RADIOLOGY REPORT (SQ) ---
EXAM DESCRIPTION: MRI HEAD WITHOUT IMAGES COMPLETED DATE/TIME: 10/27/2019 1:39 pm REASON FOR STUDY: weakness, dizziness, ataxia COMPARISON: 10/27/[address] TECHNIQUE: Multiplanar imaging includes non-contrasted T1, T2, FLAIR, and diffusion with ADC map seq uences. Images stored on PACS. LIMITATIONS: Patient motion artifact. FINDINGS: ANATOMY: No anomalies. Normal vascular flow voids. Pituitary fossa normal. CSF SPACES: Normal in size and contour. No hemorrhage. CEREBRUM: Sulci and gyri normal in size and contour. Normal white matter signal on FLAIR imaging. No evidence of hemorrhage, mass, or extraaxial fluid collection. POSTERIOR FOSSA: No signal alteration. No hemorrhage. No edema, masses or mass effect. Internal loreto tory canals, cerebello-pontine angles, mastoids normal. DIFFUSION IMAGING: Negative for acute or sub-acute infarction. ORBITS: No masses. Globes normal. PARANASAL SINUSES: No fluid levels. Mucosa normal. OTHER: No other significant finding. IMPRESSION: Examination limited by patient motion artifact. No evidence of acute or subacute ischem ic injury. Essentially normal MR appearance of the brain. EVIDENCE OF ACUTE STROKE: NO. TECHNICAL DOCUMENTATION: JOB ID: [id number] 2010 [employer]- All Rights Reserved Reading location - IP/workstation name: [email or web address]
--- NOTE | 2019-10-27 17:44 | RADIOLOGY REPORT (SQ) ---
EXAM DESCRIPTION: CAROTID DOPPLER IMAGES COMPLETED DATE/TIME: 10/27/2019 5:23 pm REASON FOR STUDY: tia COMPARISON: None. TECHNIQUE: Grayscale ultrasound, Doppler velocity and spectra, and color Doppler images acquired of the extra-cranial carotid and vertebral arteries. Images stored on PACS. LIMITATIONS: None. FINDINGS: RIGHT CAROTID CCA Velocities: Within normal limits. ICA Velocities Peak systolic 131 cm/s. End diastolic 22 cm/s. Proximal ICA/CCA peak systolic ratio 1.1. Spectra normal. No significant plaque. LEFT CAROTID CCA Velocities: Within normal limits. ICA Velocities Peak systolic 130 cm/s. End diastolic 31 cm/s. Proximal ICA/CCA peak systolic ratio 1.0. Spectra normal. No significant plaque. VERTEBRAL ARTERIES: Antegrade flow. Normal waveforms. SUBCLAVIAN ARTERIES: No finding. OTHER: No other significant finding. IMPRESSION: NO HEMODYNAMICALLY SIGNIFICANT STENOSIS. COMMENT: Quality ID #[id number]: Velocity criteria are extrapolated from the diameter data as defined by t [place]bar Society of Radiologists in Ultrasound Consensus Conference. Radiology 2003: 229; 340-346. TECHNICAL DOCUMENTATION: JOB ID: [id number] [place]-72 2010 [employer] All Rights Reserved Reading location - IP/workstation name: [email or web address]
[2019-10-27] MEDS: DOCUSATE SODIUM 100 MG CAPSULE PO SCH (18:14)
[2019-10-27] MEDS: PANTOPRAZOLE SODIUM 40 MG TABLET.DR PO SCH (18:14)
[2019-10-27 21:08] LABS: URINE AMPHETAMINES SCREEN NEGATIVE; URINE BARBITURATES SCREEN NEGATIVE; URINE BENZODIAZEPINES SCREEN NEGATIVE; URINE COCAINE SCREEN NEGATIVE; URINE MARIJUANA (THC) SCREEN NEGATIVE; URINE METHADONE SCREEN NEGATIVE; URINE PHENCYCLIDINE SCREEN NEGATIVE
[2019-10-27] MEDS: ATORVASTATIN CALCIUM 10 MG TABLET PO SCH (22:12)
--- NOTE | 2019-10-28 00:22 | XCELERA REPORT ---
[address] [address] Transthoracic Echocardiogram Report Name: LEIGHTON BHAGAT Age: 84 yrs Gender: Female : 1935 Patient Status: Inpatient Patient Location: [address] [place], [place] [address] Study Date: 10/27/2019 04:12 PM Height: 66 in Weight: 190 lb BSA: 2.0 m2 Procedure: A two-dimensional transthoracic echocardiogram with color flow and Doppler was performed. Study Quality: Poor. Reason For Study: TIA / ASESS PFO History: TIA / ASESS PFO. Ordering Physician: EVETTE CARVAJAL Performed By: rGaciela Aguero Interpretation Summary There is no obvious cardiac source of embolus noted on this transthoracic echocardiogram. Follow-up with a FARRAH is suggested if cardiac source is still suspected. The left ventricle is normal in size. LV EF is 65% Left ventricular systolic function is normal. Doppler measurements suggest impaired left ventricular relaxation, which is associated with grade I/IV or mild diastolic dysfunction The left ventricular wall motion is normal. There is no thrombus. Cannot assess ASD,VSD,or PFO. The right ventricle is not well visualized secondary to technical limitations Right atrium not well visualized secondary to technical limitations The left atrial size is normal. There is no evidence of mitral valve prolapse. There is no vegetation seen on the mitral valve. There is no mitral valve stenosis. There is a mild amount of mitral regurgitation There is no aortic valvular vegetation. There is no aortic valve stenosis There is a mild amount of aortic regurgitation There is no tricuspid stenosis. There is a mild to moderate amount of tricuspid regurgitation There is mild pulmonary hypertension by echo RVSP is 34 to 39 mm of Hg ,with RA mean of 5 to 10. There is no pulmonic valvular stenosis. There is a mild amount of pulmonic regurgitation The aortic root is not well visualized. The inferior vena cava appeared normal and decreased > 50% with respiration (RAP 5-10 mmHg) There is no pericardial effusion. There is no obvious cardiac source of embolus noted on this transthoracic echocardiogram. Follow-up with a FARRAH is suggested if cardiac source is still suspected MMode/2D Measurements & Calculations RVDd: 3.0 cm LVIDd: 4.6 cm FS: 39.2 % Ao root diam: 2.8 cm IVSd: 1.1 cm LVIDs: 2.8 cm EDV(Teich): 97.1 ml Ao root area: 6.3 cm2 LVPWd: 1.1 cm ESV(Teich): 29.4 ml LA dimension: 3.6 cm EF(Teich): 69.7 % Doppler Measurements & Calculations MV E max avelino: MV P1/2t max avelino: Ao V2 max: AI max avelino: 80.5 cm/sec 79.5 cm/sec 156.1 cm/sec 368.1 cm/sec MV A max avelino: MV P1/2t: 77.8 msec Ao max PG: AI max P.3 cm/sec MVA(P1/2t): 2.8 cm2 9.7 mmHg 54.2 mmHg MV E/A: 0.86 MV dec slope: AI dec slope: 171.0 cm/sec2 299.1 cm/sec2 AI P1/2t: MV dec time: 630.4 msec 0.35 sec LV V1 max PG: PA V2 max: PI end-d avelino: TR max avelino: 6.1 mmHg 89.3 cm/sec 144.2 cm/sec 267.9 cm/sec LV V1 max: PA max P.2 mmHg TR max P.4 cm/sec 28.7 mmHg AV P1/2t-pr_phl: MV P1/2t-pr_phl: 630.4 msec 77.8 msec Left Ventricle The left ventricle is normal in size. There is normal left ventricular wall thickness. LV EF is 65%. Left ventricular systolic function is normal. Doppler measurements suggest impaired left ventricular relaxation, which is associated with grade I/IV or mild diastolic dysfunction. The left ventricular wall motion is normal. There is no thrombus. Cannot assess ASD,VSD,or PFO. Right Ventricle The right ventricle is not well visualized secondary to technical limitations. Atria Right atrium not well visualized secondary to technical limitations. The left atrial size is normal. Mitral Valve There is no evidence of mitral valve prolapse. There is no vegetation seen on the mitral valve. There is no mitral valve stenosis. There is a mild amount of mitral regurgitation. Aortic Valve There is no aortic valvular vegetation. There is no aortic valve stenosis. There is no LVOT obstruction. There is a mild amount of aortic regurgitation. Tricuspid Valve There is no tricuspid stenosis. There is a mild to moderate amount of tricuspid regurgitation. There is mild pulmonary hypertension by echo. RVSP is 34 to 39 mm of Hg ,with RA mean of 5 to 10. Pulmonic Valve There is no pulmonic valvular stenosis. There is a mild amount of pulmonic regurgitation. Great Vessels The aortic root is not well visualized. The inferior vena cava appeared normal and decreased > 50% with respiration (RAP 5-10 mmHg). Effusions There is no pericardial effusion. : EVETTE CARVAJAL Lakshmi
[2019-10-28] MEDS: PANTOPRAZOLE SODIUM 40 MG TABLET.DR PO SCH ×2 (05:48→17:04)
[2019-10-28 06:05] LABS: ABSOLUTE EOSINOPHILS # (AUTO) 0.2 10^3/uL (0.0-0.6); ABSOLUTE LYMPHOCYTES (AUTO) 1.4 10^3/uL (0.5-4.7); ABSOLUTE MONOCYTES (AUTO) 0.6 10^3/uL (0.1-1.4); ABSOLUTE NEUT (AUTO) 4.3 10^3/uL (1.7-8.2); BASOPHILS % (AUTO) 0.6 % (0-2); EOSINOPHILS % (AUTO) 2.6 % (0-6); HEMATOCRIT 27.8 % (36.0-47.0); HEMOGLOBIN 8.9 g/dL (12.0-15.5); MEAN CORPUSCULAR HEMOGLOBIN 25.7 pg (27.0-33.4); MEAN CORPUSCULAR HGB CONC 32.1 g/dL (32.0-36.0); MEAN CORPUSCULAR VOLUME 80 fl (80-97); MONOCYTES % (AUTO) 8.6 % (3-13); PLATELET COUNT 273 10^3/uL (150-450); RED BLOOD COUNT 3.48 10^6/uL (3.72-5.28); RED CELL DISTRIBUTION WIDTH 14.6 % (11.5-14.0); SEGMENTED NEUTROPHILS % (AUTO) 66.2 % (42-78); TOTAL CELLS COUNTED % (AUTO) 100 %; WHITE BLOOD COUNT 6.5 10^3/uL (4.0-10.5)
[2019-10-28 06:18] LABS: INTERNATIONAL RATION (INR) 1.03; PROTHROMBIN TIME 13.7 SEC (11.4-15.4)
[2019-10-28 06:42] LABS: ALBUMIN 3.1 g/dL (3.5-5.0); ALKALINE PHOSPHATASE 62 U/L (38-126); ANION GAP 6 (5-19); ASPARTATE AMINO TRANSFERASE 25 U/L (14-36); BILIRUBIN,TOTAL 0.3 mg/dL (0.2-1.3); BLOOD UREA NITROGEN 10 mg/dL (7-20); CALCIUM 8.7 mg/dL (8.4-10.2); CARBON DIOXIDE 27 mmol/L (22-30); CHLORIDE 105 mmol/L (98-107); GLUCOSE 95 mg/dL (75-110); TOTAL PROTEIN 6.3 g/dL (6.3-8.2)
--- NOTE | 2019-10-28 08:48 | PDOC PROGRESS REPORT ---
Subjective Progress Note for:: 10/28/19 Subjective:: 84 year old female with history of hypertension, allergies came with complaints of fall associated with unsteady gait since yesterday. According to her she is slid of the chair unable to get up because of Left leg weakness. Work-up in the ER is negative so far. Medical consult was requested to rule out stroke. On examination patient is comfortably in the bed communicating well. Has any chest pains denies any lightheadedness denies a dizzy spells denies any headaches. 10/[id number]-azmg-old female admitted with TIA symptoms. CT head is negative carotid Doppler is negative MRI of the brain is negative for acute pathology. Echocardiogram was EF of 65% with left ventricular systolic function is normal and has a grade 1/grade 4 mild diastolic heart failure. Reason For Visit: TIA Physical Exam Vital Signs: Temp Pulse Resp BP Pulse Ox 97.7 F 72 16 142/52 H 96 10/28/19 08:07 10/28/19 08:07 10/28/19 08:07 10/28/19 08:07 10/28/19 08:07 Intake & Output 10/27/19 10/28/19 10/29/19 06:59 06:59 06:59 Intake Total 240 Output Total 850 Balance -610 Weight 86.183 kg 89.6 kg General appearance: PRESENT: no acute distress, cooperative, well-developed Head exam: PRESENT: atraumatic Eye exam: PRESENT: PERRLA Mouth exam: PRESENT: moist, tongue midline Teeth exam: PRESENT: poor dentation Neck exam: ABSENT: carotid bruit, JVD, lymphadenopathy, thyromegaly Respiratory exam: PRESENT: decreased breath sounds Cardiovascular exam: PRESENT: RRR. ABSENT: diastolic murmur, rubs, systolic murmur GI/Abdominal exam: PRESENT: normal bowel sounds, soft. ABSENT: distended, guarding, mass, organolmegaly, rebound, tenderness Rectal exam: PRESENT: deferred Extremities exam: PRESENT: full ROM. ABSENT: calf tenderness, clubbing, pedal edema Neurological exam: PRESENT: alert, awake, oriented to person, oriented to place, oriented to time, oriented to situation, CN II-XII grossly intact. ABSENT: motor sensory deficit Psychiatric exam: PRESENT: appropriate affect, normal mood. ABSENT: homicidal ideation, suicidal ideation Results Laboratory Results: 10/28/19 05:25 10/28/19 05:25 10/27/19 10/28/19 10/28/19 04:33 05:25 05:25 WBC 6.5 RBC 3.48 L Hgb 8.9 L Hct 27.8 L MCV 80 MCH 25.7 L MCHC 32.1 RDW 14.6 H Plt Count 273 Seg Neutrophils % 66.2 Sodium 137.5 Potassium 4.0 Chloride 105 Carbon Dioxide 27 Anion Gap 6 BUN 10 Creatinine 0.64 Est GFR ( Amer) > 60 Glucose 95 Calcium 8.7 Magnesium 2.1 Total Bilirubin 0.3 AST 25 Alkaline Phosphatase 62 Total Protein 6.3 Albumin 3.1 L Triglycerides 61 Cholesterol 163.59 LDL Cholesterol Direct 73 VLDL Cholesterol 12.0 HDL Cholesterol 72 TSH 10/28/19 05:25 WBC RBC Hgb Hct MCV MCH MCHC RDW Plt Count Seg Neutrophils % Sodium Potassium Chloride Carbon Dioxide Anion Gap BUN Creatinine Est GFR ( Amer) Glucose Calcium Magnesium Total Bilirubin AST Alkaline Phosphatase Total Protein Albumin Triglycerides Cholesterol LDL Cholesterol Direct VLDL Cholesterol HDL Cholesterol TSH 1.19 10/27/19 10/27/19 10/28/19 04:33 04:33 05:25 Creatine Kinase 250 H CK-MB (CK-2) 5.76 H Troponin I < 0.012 NT-Pro-B Natriuret Pep 61 234 Impressions: Carotid Doppler Study 10/27/19 00:00 IMPRESSION: NO HEMODYNAMICALLY SIGNIFICANT STENOSIS. Chest X-Ray 10/27/19 03:38 IMPRESSION: No evidence of active intrathoracic disease. Mild chronic change Venous Doppler Study 10/27/19 03:38 IMPRESSION: NO EVIDENCE DVT OR SVT IN EITHER LEG. Head CT 10/27/19 10:07 IMPRESSION: NORMAL BRAIN CT WITHOUT CONTRAST. EVIDENCE OF ACUTE STROKE: NO. Head MRI 10/27/19 12:03 IMPRESSION: Examination limited by patient motion artifact. No evidence of acute or subacute ischemic injury. Essentially normal MR appearance of the brain. EVIDENCE OF ACUTE STROKE: NO. Assessment and Plan - Diagnosis (1) Ataxia Is this a current diagnosis for this admission?: Yes Plan: 10/27/2019-patient came in with fall and unsteady gait going to be admitted to [facility] as observation patient. Aspiration fall seizure precautions are requested. MRI of the brain without contrast was requested echocardiogram was requested carotid Doppler is requested. Started on aspirin, atorvastatin and DVT prophylaxis. GI prophylaxis initiated. 10/28/2019-patient admitted with ataxia stroke is ruled out. MRI is negative, echo bubble study is normal, carotid Doppler is normal. physical therapy consult was requested. (2) HTN (hypertension) Is this a current diagnosis for this admission?: No Plan: 10/27/2019-patient has history of chronic essential hypertension blood pressure is 146/70 in the ER plan is to continue his home medications at this time. 10/28/2019-blood pressure this morning is 142/52. Stable. Plan is to continue valsartan/hydrochlorothiazide. (3) Chronic venous stasis Is this a current diagnosis for this admission?: No Plan: 10/27/2019-patient has chronic venous dialysis DVT studies are negative. On examination 2+ lower extremity edema present. 10/28/2019-echo indicates grade 1/2 diastolic heart failure to start pt on a Lasix 20 mg p.o. twice daily from today. - Time Anticipated Discharge Disposition: Home, Self Care Anticipated Discharge Timeframe: within 48 hours
[2019-10-28] MEDS ORDERED: (PENDING PHARMACY ID) (Valsartan/Hydrochlorothiazide [Valsartan-Hctz 160-12.5 Mg Tab] 1 EA PO SCH (10:00)
[2019-10-28] MEDS ORDERED: HYDROXYZINE HCL 25 MG PO SCH (10:00)
[2019-10-28] MEDS: HYDROXYZINE PAMOATE 25 MG CAPSULE PO SCH (11:38)
[2019-10-28] MEDS: FUROSEMIDE 20 MG TABLET PO SCH ×2 (11:38→17:03)
[2019-10-28] MEDS: HYDROCHLOROTHIAZIDE 12.5 MG TABLET PO SCH (11:39)
[2019-10-28] MEDS: VALSARTAN 160 MG TABLET PO SCH (11:39)
[2019-10-28] MEDS: ENOXAPARIN SODIUM INJ 40 MG/0.4 ML DISP.SYRIN SUBCUT SCH (11:40)
[2019-10-28] MEDS: ASPIRIN 81 MG TABLET, CHEWABLE PO SCH (11:40)
[2019-10-28] MEDS: DOCUSATE SODIUM 100 MG CAPSULE PO SCH ×2 (11:40→17:14)
[2019-10-28] MEDS: METHOCARBAMOL 500 MG TABLET PO SCH ×4 (11:40→21:27)
[2019-10-28] MEDS: TRAMADOL HCL 50 MG TABLET PO SCH ×4 (11:49→21:27)
[2019-10-28] MEDS ORDERED: METHOCARBAMOL 500 MG TABLET ONE (17:12)
[2019-10-28] MEDS: ATORVASTATIN CALCIUM 10 MG TABLET PO SCH (21:27)
[2019-10-29] MEDS: PANTOPRAZOLE SODIUM 40 MG TABLET.DR PO SCH (06:09)
[2019-10-29] MEDS: DOCUSATE SODIUM 100 MG CAPSULE PO SCH (09:54)
[2019-10-29] MEDS: ENOXAPARIN SODIUM INJ 40 MG/0.4 ML DISP.SYRIN SUBCUT SCH (09:55)
[2019-10-29] MEDS: VALSARTAN 160 MG TABLET PO SCH (10:05)
[2019-10-29] MEDS: FUROSEMIDE 20 MG TABLET PO SCH (10:05)
[2019-10-29] MEDS: HYDROXYZINE PAMOATE 25 MG CAPSULE PO SCH (10:05)
[2019-10-29] MEDS: TRAMADOL HCL 50 MG TABLET PO SCH (10:05)
[2019-10-29] MEDS: ASPIRIN 81 MG TABLET, CHEWABLE PO SCH (10:05)
[2019-10-29] MEDS: HYDROCHLOROTHIAZIDE 12.5 MG TABLET PO SCH (10:06)
[2019-10-29] MEDS: METHOCARBAMOL 500 MG TABLET PO SCH (10:12)
--- NOTE | 2019-10-29 10:14 | PDOC DISCHARGE SUMMARY ---
Impression - Admit/DC Date/PCP Admission Date/Primary Care Provider: 10/27/19 12:41 JAVIER MARTINEZ MD Discharge Date: 10/29/19 - Discharge Diagnosis (1) Ataxia Is this a current diagnosis for this admission?: Yes (2) HTN (hypertension) Is this a current diagnosis for this admission?: No (3) Chronic venous stasis Is this a current diagnosis for this admission?: No - Assessment Summary: (1) Ataxia Is this a current diagnosis for this admission?: Yes Plan: 10/27/2019-patient came in with fall and unsteady gait going to be admitted to [facility] as observation patient. Aspiration fall seizure precautions are requested. MRI of the brain without contrast was requested echocardiogram was requested carotid Doppler is requested. Started on aspirin, atorvastatin and DVT prophylaxis. GI prophylaxis initiated. 10/28/2019-patient admitted with ataxia stroke is ruled out. MRI is negative, echo bubble study is normal, carotid Doppler is normal. physical therapy consult was requested. 10/29/2019-echocardiogram was done bubble study is negative, MRI of the brain, CT head negative for acute pathology carotid Doppler is negative for high-grade stenosis. Patient is stable to go home today. (2) HTN (hypertension) Is this a current diagnosis for this admission?: No Plan: 10/27/2019-patient has history of chronic essential hypertension blood pressure is 146/70 in the ER plan is to continue his home medications at this time. 10/28/2019-blood pressure this morning is 142/52. Stable. Plan is to continue valsartan/hydrochlorothiazide. 10/29/2019-blood pressure today's 110/54 stable. Patient advised to be compliant with her medications follow-up with PCP next week. (3) Chronic venous stasis Is this a current diagnosis for this admission?: No Plan: 10/27/2019-patient has chronic venous dialysis DVT studies are negative. On examination 2+ lower extremity edema present. 10/28/2019-echo indicates grade 1/2 diastolic heart failure to start pt on a Lasix 20 mg p.o. twice daily from today. 10/29/2019-patient has a grade 1/grade 4 diastolic heart failure on Lasix. Prescription were given for Lasix patient is advised to follow-up with PCP next week. - Additional Information Resuscitation Status: Do Not Resuscitate Discharge Diet: Cardiac Discharge Activity: Activity As Tolerated Referrals: JAVIER MARTINEZ MD [Primary Care Provider] - 11/05/19 11:00 am Prescriptions: Aspirin [Aspirin 81 mg Chewable Tablet] 81 mg PO DAILY 30 Days #30 tab.chew Dexlansoprazole [Dexilant] 30 mg PO AC 30 Days #30 cap Furosemide [Lasix 20 mg Tablet] 20 mg PO BID 30 Days #60 tablet Atorvastatin Calcium [Lipitor 10 mg Tablet] 10 mg PO QHS 30 Days #30 tablet Home Medications: Hydroxyzine Hcl 25mg 25 mg PO DAILY 10/27/19 Methocarbamol [Robaxin 500 mg Tablet] 500 mg PO QID 10/27/19 Tramadol HCl [Ultram 50 mg Tablet] 50 mg PO QID 10/27/19 Valsartan/Hydrochlorothiazide [Valsartan-Hctz 160-12.5 mg Tab] 1 each PO DAILY 10/27/19 Aspirin [Aspirin 81 mg Chewable Tablet] 81 mg PO DAILY 30 Days #30 tab.chew 10/29/19 Atorvastatin Calcium [Lipitor 10 mg Tablet] 10 mg PO QHS 30 Days #30 tablet 10/29/19 Dexlansoprazole [Dexilant] 30 mg PO AC 30 Days #30 capbp 10/29/19 Furosemide [Lasix 20 mg Tablet] 20 mg PO BID 30 Days #60 tablet 10/29/19 History of Present Illiness History of Present Illness: LEIGHTON BHAGAT is a 84 year old female with history of hypertension, allergies came with complaints of fall associated with unsteady gait since yesterday. According to her she is slid of the chair unable to get up because of Left leg weakness. Work-up in the ER is negative so far. Medical consult was requested to rule out stroke. On examination patient is comfortably in the bed communicating well. Has any chest pains denies any lightheadedness denies a dizzy spells denies any headaches. Hospital Course Hospital Course: 84 year old female with history of hypertension, allergies came with complaints of fall associated with unsteady gait since yesterday. According to her she is slid of the chair unable to get up because of Left leg weakness. Work-up in the ER is negative so far. Medical consult was requested to rule out stroke. On examination patient is comfortably in the bed communicating well. Has any chest pains denies any lightheadedness denies a dizzy spells denies any headaches. 10/28/[id number]-old female admitted with TIA symptoms. CT head is negative carotid Doppler is negative MRI of the brain is negative for acute pathology. Echocardiogram was EF of 65% with left ventricular systolic function is normal and has a grade 1/grade 4 mild diastolic heart failure. 10/29/[id number]-old female admitted with TIA-like symptoms CT head is negative for acute pathology MRI of the brain is negative for acute pathology carotid Doppler is negative. Echocardiogram within normal limits except for diastolic heart failure. Bubble study is negative. Patient is stable to go home today. Physical Exam Vital Signs: Temp Pulse Resp BP Pulse Ox 98.1 F 74 16 121/55 L 100 10/29/19 07:28 10/29/19 08:00 10/29/19 08:00 10/29/19 08:00 10/29/19 08:00 Intake & Output 10/28/19 10/29/19 10/30/19 06:59 06:59 06:59 Intake Total 240 1080 Output Total 850 2600 Balance -610 -1520 Weight 89.6 kg 92.2 kg General appearance: PRESENT: no acute distress, well-developed Head exam: PRESENT: atraumatic Eye exam: PRESENT: PERRLA Mouth exam: PRESENT: moist, tongue midline Teeth exam: PRESENT: poor dentation Neck exam: ABSENT: carotid bruit, JVD, lymphadenopathy, thyromegaly Respiratory exam: PRESENT: decreased breath sounds Cardiovascular exam: PRESENT: RRR. ABSENT: diastolic murmur, rubs, systolic murmur GI/Abdominal exam: PRESENT: normal bowel sounds, soft. ABSENT: distended, guarding, mass, organolmegaly, rebound, tenderness Rectal exam: PRESENT: deferred, decreased rectal tone Extremities exam: PRESENT: full ROM. ABSENT: calf tenderness, clubbing, pedal edema Neurological exam: PRESENT: alert, awake, oriented to person, oriented to place, oriented to time, oriented to situation, CN II-XII grossly intact. ABSENT: motor sensory deficit Results Laboratory Results: WBC 6.5 10^3/uL (4.0-10.5) 10/28/19 05:25 RBC 3.48 10^6/uL (3.72-5.28) L 10/28/19 05:25 Hgb 8.9 g/dL (12.0-15.5) L 10/28/19 05:25 Hct 27.8 % (36.0-47.0) L 10/28/19 05:25 MCV 80 fl (80-97) 10/28/19 05:25 MCH 25.7 pg (27.0-33.4) L 10/28/19 05:25 MCHC 32.1 g/dL (32.0-36.0) 10/28/19 05:25 RDW 14.6 % (11.5-14.0) H 10/28/19 05:25 Plt Count 273 10^3/uL (150-450) 10/28/19 05:25 Lymph % (Auto) 22.0 % (13-45) 10/28/19 05:25 [place] % (Auto) 8.6 % (3-13) 10/28/19 05:25 Eos % (Auto) 2.6 % (0-6) 10/28/19 05:25 Baso % (Auto) 0.6 % (0-2) 10/28/19 05:25 Absolute Neuts (auto) 4.3 10^3/uL (1.7-8.2) 10/28/19 05:25 Absolute Lymphs (auto) 1.4 10^3/uL (0.5-4.7) 10/28/19 05:25 Absolute Monos (auto) 0.6 10^3/uL (0.1-1.4) 10/28/19 05:25 Absolute Eos (auto) 0.2 10^3/uL (0.0-0.6) 10/28/19 05:25 Absolute Basos (auto) 0.0 10^3/uL (0.0-0.2) 10/28/19 05:25 Seg Neutrophils % 66.2 % (42-78) 10/28/19 05:25 PT 13.7 SEC (11.4-15.4) 10/28/19 05:25 INR 1.03 10/28/19 05:25 Sodium 137.5 mmol/L (137-145) 10/28/19 05:25 Potassium 4.0 mmol/L (3.6-5.0) 10/28/19 05:25 Chloride 105 mmol/L (98-107) 10/28/19 05:25 Carbon Dioxide 27 mmol/L (22-30) 10/28/19 05:25 Anion Gap 6 (5-19) 10/28/19 05:25 BUN 10 mg/dL (7-20) 10/28/19 05:25 Creatinine 0.64 mg/dL (0.52-1.25) 10/28/19 05:25 Est GFR ( Amer) > 60 (>60) 10/28/19 05:25 Est GFR (MDRD) Non-Af > 60 (>60) 10/28/19 05:25 Glucose 95 mg/dL (75-110) 10/28/19 05:25 Hemoglobin A1c % 5.3 % (4.7-6.0) 10/28/19 05:25 Calcium 8.7 mg/dL (8.4-10.2) 10/28/19 05:25 Magnesium 2.1 mg/dL (1.6-2.3) 10/28/19 05:25 Total Bilirubin 0.3 mg/dL (0.2-1.3) 10/28/19 05:25 Direct Bilirubin 0.0 mg/dL (0.0-0.4) 10/28/19 05:25 Neonat Total Bilirubin Not Reportable 10/28/19 05:25 Neonat Direct Bilirubin Not Reportable 10/28/19 05:25 Neonat Indirect Bili Not Reportable 10/28/19 05:25 AST 25 U/L (14-36) 10/28/19 05:25 ALT 15 U/L (<35) 10/28/19 05:25 Alkaline Phosphatase 62 U/L (38-126) 10/28/19 05:25 Creatine Kinase 250 U/L (30-135) H 10/27/19 04:33 CK-MB (CK-2) 5.76 ng/mL (<4.55) H 10/27/19 04:33 Troponin I < 0.012 ng/mL 10/27/19 04:33 NT-Pro-B Natriuret Pep 234 pg/mL (<450) 10/28/19 05:25 Total Protein 6.3 g/dL (6.3-8.2) 10/28/19 05:25 Albumin 3.1 g/dL (3.5-5.0) L 10/28/19 05:25 Triglycerides 61 mg/dL (<150) 10/27/19 04:33 Cholesterol 163.59 mg/dL (0-200) 10/27/19 04:33 LDL Cholesterol Direct 73 mg/dL (<100) 10/27/19 04:33 VLDL Cholesterol 12.0 mg/dL (10-31) 10/27/19 04:33 HDL Cholesterol 72 mg/dL (>40) 10/27/19 04:33 TSH 1.19 uIU/mL (0.47-4.68) 10/28/19 05:25 Urine Color STRAW 10/27/19 02:29 Urine Appearance CLEAR 10/27/19 02:29 Urine pH 7.0 (5.0-9.0) 10/27/19 02:29 Ur Specific [place] 1.003 10/27/19 02:29 Urine Protein NEGATIVE mg/dL (NEGATIVE) 10/27/19 02:29 Urine Glucose (UA) NEGATIVE mg/dL (NEGATIVE) 10/27/19 02:29 Urine Ketones NEGATIVE mg/dL (NEGATIVE) 10/27/19 02:29 Urine Blood NEGATIVE (NEGATIVE) 10/27/19 02:29 Urine Nitrite NEGATIVE (NEGATIVE) 10/27/19 02:29 Urine Bilirubin NEGATIVE (NEGATIVE) 10/27/19 02:29 Urine Urobilinogen NEGATIVE mg/dL (<2.0) 10/27/19 02:29 Ur Leukocyte Esterase NEGATIVE (NEGATIVE) 10/27/19 02:29 Urine WBC (Auto) 0 /HPF 10/27/19 02:29 Urine RBC (Auto) 0 /HPF 10/27/19 02:29 Urine Bacteria (Auto) TRACE /HPF 10/27/19 02:29 Squamous Epi Cells Auto <1 /HPF 10/27/19 02:29 Urine Mucus (Auto) RARE /LPF 10/27/19 02:29 Urine Ascorbic Acid NEGATIVE (NEGATIVE) 10/27/19 02:29 Urine Opiates Screen NEGATIVE 10/27/19 02:29 Urine Methadone Screen NEGATIVE 10/27/19 02:29 Ur Barbiturates Screen NEGATIVE 10/27/19 02:29 Ur Phencyclidine Scrn NEGATIVE 10/27/19 02:29 Ur Amphetamines Screen NEGATIVE 10/27/19 02:29 U Benzodiazepines Scrn NEGATIVE 10/27/19 02:29 Urine Cocaine Screen NEGATIVE 10/27/19 02:29 U Marijuana (THC) Screen NEGATIVE 10/27/19 02:29 10/27/19 10/28/19 04:33 05:25 CK-MB (CK-2) 5.76 H Troponin I < 0.012 NT-Pro-B Natriuret Pep 61 234 Impressions: Carotid Doppler Study 10/27/19 00:00 IMPRESSION: NO HEMODYNAMICALLY SIGNIFICANT STENOSIS. Chest X-Ray 10/27/19 03:38 IMPRESSION: No evidence of active intrathoracic disease. Mild chronic change Venous Doppler Study 10/27/19 03:38 IMPRESSION: NO EVIDENCE DVT OR SVT IN EITHER LEG. Head CT 10/27/19 10:07 IMPRESSION: NORMAL BRAIN CT WITHOUT CONTRAST. EVIDENCE OF ACUTE STROKE: NO. Head MRI 10/27/19 12:03 IMPRESSION: Examination limited by patient motion artifact. No evidence of acute or subacute ischemic injury. Essentially normal MR appearance of the brain. EVIDENCE OF ACUTE STROKE: NO. Stroke Is this a Stroke Patient?: No Acute Heart Failure - Is this a Heart Failure Patient?: No
[2019-10-29 10:57] VITALS: BP 122/56
== END 2019-10-29 14:00 | disposition home health service (06) ==
LOC: ER 23:16 → EH 10-27 12:41 → 3W 10-27 14:37
PROVIDERS: ADMIT Internal Medicine; ATTEND Internal Medicine
DX: R27.0 Ataxia, unspecified (principal); I87.8 Other specified disorders of veins; I11.0 Hypertensive heart disease with heart failure; I50.30 Unspecified diastolic (congestive) heart failure; R53.1 Weakness; W07.XXXA Fall from chair, initial encounter; Y92.241 Library as the place of occurrence of the external cause; E66.9 Obesity, unspecified; M19.90 Unspecified osteoarthritis, unspecified site; Z66 Do not resuscitate; Z79.899 Other long term (current) drug therapy; Z79.82 Long term (current) use of aspirin; Z82.49 Family history of ischemic heart disease and other diseases of the circulatory system
CPT/HCPCS: 93005; 99285; 96374; 36415 ×2; 82553; 82550; 83735; 84443; 85025 ×2; 85610; 80053 ×2; 81001; 84484; 80307; 83036; 80061; 83880 ×2; 93306; 93970; 93880; 70551; 71045; 70450; 93010; 97530 ×2; 97110; 97116; 97162; G0378 ×4; A9270 ×21; J1650; J3490 ×3; J2405

== ENCOUNTER 2020-01-05 02:39 | Emergency (ER) | payer MEDICARE, MEDICAID ==
[2020-01-05] MEDS ORDERED: DIPH/PERTUSS(ACELL)/TETANUS VAC/PF 0.5 ML SYR (>=10YO) IM ONE (05:40)
[2020-01-05] MEDS ORDERED: ACETAMINOPHEN 325 MG TABLET PO ONE (05:43)
--- NOTE | 2020-01-05 05:43 | ER Document Report ---
ED Medical Screen (RME) - General Chief Complaint: Fall Stated Complaint: FALL/ABRASION ON EYE Primary Care Provider: SHANIQUE FONG MD [Primary Care Provider] - Follow up as needed Notes: 84-year-old female presents with pain in posterior neck and above left eye after mechanical fall just prior to arrival. Patient says she was getting out of elevator and slipped on the ground falling forward and hitting head. Patient denies LOC, confusion, back pain, chest pain, abdominal pain, recent illness. Unknown last Tdap. TRAVEL OUTSIDE OF THE [place] IN LAST 30 DAYS: Yes - Related Data Allergies/Adverse Reactions: chocolate flavor Allergy (Verified 01/05/20 03:12) nut - unspecified Allergy (Verified 01/05/20 03:12) peach Allergy (Verified 01/05/20 03:12) Past Medical History - General Information source: Patient - Social History Chew tobacco use (# tins/day): No Frequency of alcohol use: None Drug Abuse: None - Past Medical History Cardiac Medical History: Reports: Hx Hypertension Musculoskeltal Medical History: Reports Hx Arthritis Psychiatric Medical History: Denies: Hx Depression Past Surgical History: Reports: Hx Section - Immunizations Hx Diphtheria, Pertussis, Tetanus Vaccination: No - unk Review of Systems - Review of Systems Notes: No dizziness, no syncope Physical Exam - Vital signs Vitals: Temp 97.4 F 01/05/20 02:40 - Notes Notes: Somnolent elderly woman in no acute distress lying in stretcher with abrasion and edema over left orbit with mild diffuse posterior neck discomfort without focus or bony deformity. Course - Re-evaluation Re-evalutation: 01/05/20 05:43 I have greeted and performed a rapid initial assessment of this patient. A comprehensive ED assessment and evaluation of the patient, analysis of test results and completion of medical decision making process will be conducted by additional ED providers. - Vital Signs Vital signs: Temp Pulse Resp BP Pulse Ox 97.4 F 82 20 128/75 H 100 01/05/20 02:51 01/05/20 02:51 01/05/20 02:51 01/05/20 02:51 01/05/20 02:51 Doctor's Discharge - Discharge Referrals: SHANIQUE FONG MD [Primary Care Provider] - Follow up as needed
--- NOTE | 2020-01-05 06:39 | RADIOLOGY REPORT (SQ) ---
CT cervical spine without contrast on 01/05/2020 at 6:02 AM CLINICAL INDICATION: Trauma, per protocol for mechanism of injury TECHNIQUE: Multiple axial images are obtained throughout the cervical spine without the administration of contrast. Sagittal and coronal reformatted images are also performed and reviewed. This exam was performed according to our departmental dose-optimization program, which includes automated exposure control, adjustment of the mA and/or kV according to patient size and/or use of iterative reconstruction technique. Total DLP is 402.06 mGy*cm. COMPARISON: None FINDINGS: Degenerative disc disease is noted throughout the cervical spine worst from C5 through C7. There is minimal grade 1 spondylolisthesis at C4-5 secondary to degenerative facet disease. Degenerative facet disease is noted bilaterally but greater on the left in the mid cervical spine. Reformatted images reveal otherwise normal alignment of the cervical spine. There is no prevertebral soft tissue swelling. No definite disc herniation is noted. IMPRESSION: Degenerative changes with no acute abnormality.
--- NOTE | 2020-01-05 06:42 | RADIOLOGY REPORT (SQ) ---
CT head without contrast on 01/05/2020 at 6:01 AM CLINICAL INDICATION: Trauma, per protocol for mechanism of injury TECHNIQUE: Multiple axial images are obtained throughout the head without the administration of contrast. This exam was performed according to our departmental dose-optimization program, which includes automated exposure control, adjustment of the mA and/or kV according to patient size and/or use of iterative reconstruction technique. Total DLP is 963.96 mGy*cm. COMPARISON: CT and MRI from 10/27/2019 FINDINGS: There is left periorbital scalp soft tissue swelling/hematoma. There is no hydrocephalus. There is no CT evidence of acute infarct. There is no hemorrhage. There are no abnormal extra-axial fluid collections. There is no mass, mass effect or midline shift. There is fluid and blood in the left maxillary sinus. Please refer to CT facial bones report for details of any possible facial fractures. No acute bony abnormality is noted in the calvarium. IMPRESSION: No acute intracranial abnormality.
--- NOTE | 2020-01-05 06:47 | RADIOLOGY REPORT (SQ) ---
CT face and sinuses without contrast on 01/05/2020 at 6:02 AM CLINICAL INDICATION: Left periorbital swelling, trauma TECHNIQUE: Multiple axial images are obtained throughout the face/sinuses without the administration of contrast. Sagittal and coronal reformatted images are also performed and reviewed. This exam was performed according to our departmental dose-optimization program, which includes automated exposure control, adjustment of the mA and/or kV according to patient size and/or use of iterative reconstruction technique. Total DLP is 602.24 mGy*cm. COMPARISON: None FINDINGS: There is mild nasal septal deviation to the left. There is fluid and blood in the left maxillary sinus. Paranasal sinuses are otherwise clear. The patient is edentulous. The bilateral TMJs are well located. There is left periorbital soft tissue swelling/hematoma. There is a tiny focus of retro-orbital air in the left retro-orbital region seen on sagittal image 50 and axial image 46. There also appears to be a tiny amount of air just superior to the left orbital floor on coronal image 25. The patient's definite left orbital floor fracture is not well visualized but favor there to be a nondisplaced left orbital floor fracture. There is no evidence of muscular entrapment. No other acute fracture line is noted. No other bony or soft tissue abnormality is noted. IMPRESSION: Probable nondisplaced left orbital floor fracture with left periorbital soft tissue swelling and fluid and blood in the left maxillary sinus.
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
[2020-01-05 11:45] VITALS: BP 149/40
== END 2020-01-05 12:00 | disposition home or self-care (01) ==
LOC: ER 02:39
DX: S02.32XA Fracture of orbital floor, left side, initial encounter for closed fracture (principal); S00.219A Abrasion of unspecified eyelid and periocular area, initial encounter; W19.XXXA Unspecified fall, initial encounter; Y93.89 Activity, other specified; M47.812 Spondylosis without myelopathy or radiculopathy, cervical region; Z23 Encounter for immunization; R27.0 Ataxia, unspecified; R60.0 Localized edema; M54.9 Dorsalgia, unspecified; G89.29 Other chronic pain; Z91.018 Allergy to other foods
CPT/HCPCS: 99284; 96372; 70450; 70486; 72125; 90715; A9270